=== PATIENT | male | born 1990 | race Caucasian/White ===

== ENCOUNTER 2020-04-21 08:25 | Outpatient (CLI) | payer BC, SELFPAY ==
--- NOTE | ~2020-04-21 | CT_ITS ---
EXAMINATION: CT abdomen pelvis w con DATE: 04/21/2020 09:11 INDICATION: Low abdominal pain. TECHNIQUE: Computed tomography (CT) of the abdomen and pelvis was performed with 100 mL Omnipaque 350 intravenous contrast. Automated exposure control and iterative reconstruction technique were employe d. The dose-length product was 649.47 mGy-cm. COMPARISON: None. FINDINGS: The visualized portions of the lung bases are clear without pneumonia or pleural effusion. The heart size is normal. No pericardial effusion. The liver, gallbladder, spleen, pancreas, adrenal glands, and kidneys are normal. The appendix measures 8 mm in diameter. There are no pathologically e nlarged lymph nodes. There is no free intraperitoneal fluid. There is mild lumbar spondylosis. IMPRESSION: 1. Appendiceal diameter of 8 mm, which is indeterminate for appendicitis. Correlate with physical exa m. Reviewed, dictated and finalized at location A. RV[employer]OR [employer] FURN[employer]URE FABRICATION IMPRESSION: 1. Appendiceal diameter of 8 mm, which is indeterminate for appendicitis. Corre late with physical exam.
[2020-04-21 09:06] LABS: Estimated Glomerular Filt Rate > 60
== END 2020-04-21 08:26 | disposition home or self-care (01) ==
PROVIDERS: PCP Physician Assistant; Visit Provider Physician Assistant
DX: R10.84 Generalized abdominal pain (principal)
CPT/HCPCS: 74177; Q9967

== ENCOUNTER 2020-04-25 07:35 | Outpatient (CLI) | payer BC, SELFPAY ==
--- NOTE | ~2020-04-25 | NM_ITS ---
EXAM: NM gastric emptying study DATE: 04/25/2020 12:14 INDICATION: Abdominal pain. Early satiety. Bloating. TECHNIQUE: A gastric emptying study was performed using the methodology of Loida CAGE, et al. J Nucl Med 2007; 48:568-572. The patient was given a meal consisting of 2 scrambled eggs labeled with 1.05 mCi Tc-99m sulfur colloid, 2 slices of toast, two packages of jam, and approximately 120 mL of water. Simultaneous anterior and posterior 1-min images of the abdomen were obtained with the patient supin e at multiple time points over a total period of 4 hours. The geometric mean of anterior and posterio r views was determined, and the percentage retention was calculated for each time point. COMPARISON: CT abdomen and pelvis 04/21/20 FINDINGS: Gastric retention of the radiotracer-labeled meal was 73%, 46%, and 15% at the 1-hour, 2-h our, and 4-hour time points, respectively. With this technique, apparent rapid gastric emptying is uriarte ggested by <30% gastric retention at 1 hour. Delayed gastric emptying is defined by gastric retention of >90% at 1 hour, >60% retention at 2 hours, or >10% retention at 4 hours. IMPRESSION: 1. Delayed gastric emptying. Reviewed, dictated and finalized at location A. MECHANIST
[2020-04-25 12:22] LABS: Basophils Absolute Auto 0.06 K/mm3 (0.00-0.10); Eosinophils Absolute Auto 0.08 K/mm3 (0.02-0.50); Eosinophils Percent Auto 1.3 % (1.0-6.0); Hematocrit 42.6 % (40.0-54.0); Hemoglobin 14.7 g/dL (14.0-18.0); Immature Granulocyte Absolute 0.01 K/mm3 (0.00-0.00); Immature Granulocyte Percent A 0.2 % (0.0-0.0); Lymphocytes Absolute Auto 2.24 K/mm3 (1.10-4.50); Lymphocytes Percent Auto 37.5 % (18.0-42.0); Mean Corpuscular HGB Conc 34.5 g/dL (32.0-36.0); Mean Corpuscular Hemoglobin 29.3 pg (27.0-31.0); Mean Platelet Volume 9.4 fl (8.7-11.0); Monocytes Absolute Auto 0.38 K/mm3 (0.10-0.90); Monocytes Percent Auto 6.4 % (2.0-11.0); Neutrophils Absolute Auto 3.2 K/mm3 (1.7-7.2); Neutrophils Percent Auto 53.6 % (50.0-70.0); Platelet Count Result 254 K/mm3 (150-420); Red Blood Count 5.01 M/mm3 (4.70-6.10); Red Cell Distribution Width 12.2 % (11.6-14.4)
[2020-04-25 12:56] LABS: Alanine Aminotransferase 18 U/L (16-63); Albumin Level 4.4 g/dL (3.4-5.0); Alkaline Phosphatase 61 U/L (46-116); Amylase 33 U/L (25-115); Anion Gap 8 mmol/L (8-16); Aspartate Amino Transferase 10 U/L (15-37); Bilirubin,Total 0.6 mg/dL (0.00-1.00); Blood Urea Nitrogen 13 mg/dL (7-18); Calcium 8.9 mg/dL (8.5-10.1); Carbon Dioxide 27 mmol/L (21-32); Chloride 102 mmol/L (98-108); Estimated Glomerular Filt Rate > 60; Glucose 203 mg/dL (70-99); Lipase 56 U/L (73-393); Osmolality Calculated 290 mOsm/kg (285-295); Potassium 4.4 mmol/L (3.5-5.1); Sodium 137 mmol/L (136-145); Total Protein 7.2 g/dL (6.4-8.2)
== END 2020-04-25 07:36 | disposition home or self-care (01) ==
PROVIDERS: PCP Physician Assistant; Visit Provider Physician Assistant
DX: R10.84 Generalized abdominal pain (principal); R68.81 Early satiety
CPT/HCPCS: 36415; 78264; 80053; 82150; 83690; 85025; A9541

== ENCOUNTER 2020-04-28 20:23 | Emergency (ER) | payer BC, SELFPAY ==
--- NOTE | ~2020-04-28 | CT_ITS ---
EXAMINATION: CT abdomen pelvis w con DATE: 04/28/2020 21:43 INDICATION: Generalized abdominal pain TECHNIQUE: Computed tomography (CT) of the abdomen and pelvis was performed with 100 cc Omnipaque 350 intravenous contrast. The dose-length product was 788.45 mGy-cm. Automated exposure control and iter ative reconstruction technique were employed. COMPARISON: CT dated 04/21/2020 FINDINGS: Lung bases are unremarkable. Heart size normal. No pleural or pericardial effusion. No sign ificant vascular abnormality. No lymphadenopathy. The liver, spleen, pancreas, adrenal glands and kidneys are unremarkable. Gallbladder is present. Eusebio endix is normal caliber measuring 6 mm. No significant periappendiceal infiltration. No free air or f ree fluid. Enlarged prostate gland. Mild lumbar spondylosis. IMPRESSION: 1. No acute abdominal abnormality. Reviewed, dictated and finalized at location A. GENERATOR OPERATOR
[2020-04-28 20:35] VITALS: BP 144/82; PULSE 120; RESP 17; TEMP 36.4; O2SAT 99
[2020-04-28 20:58] LABS: Basophils Percent Auto 0.3 % (0.2-1.2); Eosinophils Absolute Auto 0.1 K/mm3 (0-0.3); Hemoglobin 16.8 g/dL (14.0-18.0); Immature Granulocyte Absolute 0.04 K/mm3 (0.00-0.031); Immature Granulocyte Percent A 0.3 % (0-0.5); Lymphocytes Absolute Auto 1.59 K/mm3 (0.9-3.2); Lymphocytes Percent Auto 12.5 % (18.3-44.2); Mean Corpuscular HGB Conc 35.7 g/dl (32-36); Mean Corpuscular Hemoglobin 30.1 pg (26-34); Mean Corpuscular Volume 84.1 fl (80-100); Mean Platelet Volume 9.4 fl (7.4-10.4); Monocytes Absolute Auto 0.6 K/mm3 (0.1-0.6); Neutrophils Absolute Auto 10.2 K/mm3 (1.3-6.7); Neutrophils Percent Auto 80.9 % (45.5-73.1); Platelet Count Result 295 k/mm3 (150-375); Red Blood Count 5.59 M/mm3 (4.6-6.20); Red Cell Distribution Width 12.4 % (11.5-14.5); White Blood Count 12.7 K/mm3 (4.5-10.0)
[2020-04-28 21:12] LABS: Alanine Aminotransferase 16 U/L (4-50); Albumin Level 5.1 g/dL (3.5-5.1); Alkaline Phosphatase 62 U/L (38-126); Anion Gap 11 mmol/L (8-16); Aspartate Amino Transferase 23 U/L (17-59); Bilirubin,Total 0.7 mg/dL (0.2-1.3); Blood Urea Nitrogen 19 mg/dL (9-20); Calcium 9.8 mg/dL (8.4-10.2); Carbon Dioxide 27 mmol/L (22-30); Chloride 103 mmol/L (98-107); Estimated CRCL calculation 117 ml/min; Estimated Glomerular Filt Rate > 60; Glucose 152 mg/dL (75-110); Lipase 52 U/L (23-300); Sodium 141 mmol/L (137-145)
--- NOTE | 2020-04-28 21:21 | ED.ABDPAIN ---
HPI - Abdominal Pain General Chief Complaint: Abdominal Pain Stated Complaint: abd pain Time Seen by Provider: 04/28/20 20:53 Source: patient Mode of arrival: ambulatory Limitations: no limitations History of Present Illness HPI narrative: This is a 29-year-old male that presents to the emergency department for abdominal discomfort x3 weeks. Reports he feels full easily. Reports abdominal bloating. Reports he has been seeing his primary doctor for this. He had a gastric emptying study that did show some delayed gastric emptying. He also had a CT scan of his abdomen and pelvis recently which showed a enlarged appendix. Reports nausea and vomiting. Also reports a low-grade fever today. Denies diarrhea, or dysuria. Related Data Home Medications Medication Instructions Recorded Confirmed famotidine 20 mg PO DAILY 04/28/20 04/28/20 insulin aspart U-100 [Novolog 04/28/20 U-100 Insulin aspart] lisinopril 04/28/20 Allergies Allergy/AdvReac Type Severity Reaction Status Date / Time Penicillins Allergy Unknown Hives Verified 04/28/20 20:24 Review of Systems Review of Systems: Narrative: CONSTITUTIONAL: Reports fever GASTROINTESTINAL: Reports abdominal pain, nausea, vomiting. Denies diarrhea. GENITOURINARY: Denies dysuria All systems reviewed & are unremarkable except as noted in HPI and below PMFSH Past Medical History Medical History (Updated 04/28/20 @ 22:34 by Layne Fulton PA-C) History of diabetes mellitus Social History Social History (Updated 04/28/20 @ 21:24 by Layne Fulton PA-C) Substance use: current Substance use type: marijuana Gender identity (if verbalized by the patient): Male Exam Narrative: Exam Narrative: GENERAL: Well-appearing, well-nourished, and in no acute distress. HEAD: Normocephalic, atraumatic. EYES: EOMI. CHEST: Clear to auscultation. No respiratory distress. No wheezes rales or rhonchi HEART: Regular rate and rhythm. No murmur heard. Normal peripheral pulses. ABDOMEN: Soft, nondistended, normal active bowel sounds. Tender to palpation throughout the lower abdomen, without guarding. No CVA tenderness EXTREMITIES: Normal range of motion. No edema. SKIN: Warm, dry, no rash. NEURO: No focal deficits. Alert and oriented x3. PSYCH: Normal mood and affect Course Vital Signs Vital signs: Vital Signs Temperature 97.6 F 04/28/20 20:35 Pulse Rate 120 H 04/28/20 20:35 Respiratory Rate 17 04/28/20 20:35 Blood Pressure 144/82 H 04/28/20 20:35 Pulse Oximetry 99 04/28/20 20:35 Temperature 97.6 F 04/28/20 20:35 Pulse Rate 120 H 04/28/20 20:35 Respiratory Rate 17 04/28/20 20:35 Blood Pressure 144/82 H 04/28/20 20:35 Pulse Oximetry 99 04/28/20 20:35 MDM - Abdominal Pain MDM Narrative Medical decision making narrative: Patient presents the emergency department for abdominal discomfort and bloating. Patient is a diabetic. Did recently have a gastric emptying study done that showed delayed gastric emptying. Patient is afebrile and nontoxic-appearing. CBC with mild leukocytosis to 12.7. Metabolic panel without concerning findings. Lipase is normal. No episodes of emesis in the ED. He reports improvement with Tylenol and Reglan. Patient is stable and felt appropriate for further outpatient evaluation. He was given warnings to return to the ER Lab Data Attestation: I reviewed the patient's lab results. Result diagrams: 04/28/20 20:48 04/28/20 20:48 Labs: Lab Results 04/28/20 04/28/20 Range/Units 20:48 20:48 WBC 12.7 H (4.5-10.0) K/mm3 RBC 5.59 (4.6-6.20) M/mm3 Hgb 16.8 (14.0-18.0) g/dL Hct 47.0 (42.0-52.0) % MCV 84.1 (80-100) fl MCH 30.1 (26-34) pg MCHC 35.7 (32-36) g/dl RDW 12.4 (11.5-14.5) % Plt Count 295 (150-375) k/mm3 MPV 9.4 (7.4-10.4) fl Immature Gran % (Auto) 0.3 (0-0.5) % Neut % (Auto) 80.9 H (45.5-73.1) % Lymph % (Auto) 12.5 L (
[2020-04-28] MEDS: METOCLOPRAMIDE HCL INJ 10 MG/2 ML VIAL IV PUSH (21:30)
[2020-04-28] MEDS: SODIUM CHLORIDE 0.9% IV 1,000 ML 999 ML IV CONT (21:30)
[2020-04-28 22:44] VITALS: BP 128/84; PULSE 88; RESP 16; TEMP 36.7; O2SAT 99
== END 2020-04-28 22:45 | disposition home or self-care (01) ==
PROVIDERS: Emergency Medicine; Emergency Provider Emergency Medicine; PCP Physician Assistant
DX: R14.0 Abdominal distension (gaseous) (principal); E11.9 Type 2 diabetes mellitus without complications; Z79.4 Long term (current) use of insulin
CPT/HCPCS: 36415; 74177; 80053; 83690; 85025; 96361; 96374; 96375; 99284; J0131; J2765; J7030; Q9967

== ENCOUNTER → 2020-11-21 08:09 | Outpatient (CLI) | payer BC, SELFPAY ==
--- NOTE | ~2020-11-21 | US_ITS ---
US right upper quadrant DATE: 11/21/2020 08:32 INDICATION: Epigastric abdominal pain, nausea and vomiting TECHNIQUE: Real-time imaging of liver, pancreas, gallbladder COMPARISON: 04/28/2020 CT abdomen pelvis FINDINGS: No hepatic or pancreatic space-occupying mass lesion is evident. Normal hepatopedal portal venous flow direction. No gallstones, gallbladder wall thickening or abnormal pericholecystic fluid collection. The common b ile duct measures 4 mm, normal. Normal caliber of the abdominal aorta. IMPRESSION: No significant abnormality Reviewed, dictated and finalized at Location A. Reviewed, dictated and finalized at location A. IMPRESSION: No significant abnormality
== END ==
PROVIDERS: PCP Physician Assistant
DX: R10.13 Epigastric pain (principal); G89.29 Other chronic pain; R11.2 Nausea with vomiting, unspecified
CPT/HCPCS: 76705

== ENCOUNTER 2022-01-06 22:53 | Emergency (ER) | payer OTHER, SELFPAY ==
--- NOTE | ~2022-01-06 | XR_ITS ---
EXAMINATION: XR chest 2V DATE: 01/06/2022 23:42 INDICATION: Chest pain TECHNIQUE: PA and lateral views of the chest were obtained. COMPARISON: None FINDINGS: The lungs are clear with no focal airspace opacities, pulmonary edema, pleural effusion or pneumothor ax. The cardiomediastinal silhouette is normal. Mild thoracic dextroscoliosis. IMPRESSION: 1. No acute cardiopulmonary disease. Reviewed, dictated and finalized at location A. NG IRONER
[2022-01-06 22:58] VITALS: BP 138/94; PULSE 92; RESP 17; TEMP 37.6; O2SAT 99
--- NOTE | 2022-01-06 22:58 | ECG_ITS ---
Measurements Intervals [place] Rate: 97 P: 54 UT: 129 QRS: 18 QRSD: 101 T: 48 QT: 378 QTc: 480 Interpretive Statements SINUS RHYTHM NONSPECIFIC T-WAVE ABNORMALITY- DIFFUSE LEADS BASELINE ARTIFACT- I, II, III, AVR, AVL, AVF, V1-V6 BORDERLINE ECG NO PREVIOUS ECG AVAILABLE FOR COMPARISON Electronically Signed On 01-07-2022 7:00:58 STAND UP COMEDIAN by Arcadio Stevens D.O.
--- NOTE | 2022-01-06 23:08 | ED.GENADULT ---
HPI - General Adult General Chief complaint: Chest Pain Stated complaint: chest pain radiates to shoulder blades Time Seen by Provider: 01/06/22 23:02 History of Present Illness HPI narrative: Patient 31-year-old gentleman who presents emerged part with chief complaint of chest pain patient states that he has had discomfort and pressure in his chest has been intermittent for the last several days. The patient reports he has history of type 1 diabetes reports that the pain does not radiate reports that he has had no shortness of breath reports that he ate a burrito today. Patient with no prior history of cardiac disorders reports no hypertension. Related Data Home Medications Medication Instructions Recorded Confirmed insulin aspart U-100 100 unit/mL 04/28/20 05/09/20 subcutaneous solution (Novolog U-100 Insulin aspart) lisinopril 10 mg tablet 04/28/20 05/09/20 Allergies Allergy/AdvReac Type Severity Reaction Status Date / Time Penicillins Allergy Unknown Hives Verified 01/06/22 23:03 Review of Systems Review of Systems: A 10 system review of systems was completed on the patient and is negative except for what is stated in the HPI. Nursing and ancillary documentation was reviewed. [facility] Past Medical History Medical History History of diabetes mellitus Hypertension Surgical History Surgical History H/O chest tube placement Family History Family History Mother Hypertension Sibling Diabetes mellitus Social History Social History Smoking status: Never smoker Substance use: current Substance use type: marijuana Gender identity (if verbalized by the patient): Male Exam Narrative: GENERAL: Well-appearing, well-nourished, and in no acute distress. HEAD: Normocephalic, atraumatic. EYES: PERRLA and EOMI. ENT: Nares clear, no rhinorrhea or epistaxis. Mucous membranes moist. NECK: Supple. CHEST: Clear to auscultation. No respiratory distress. HEART: Regular rate and rhythm. No murmur heard. Normal peripheral pulses. ABDOMEN: Soft, nontender, nondistended, normal active bowel sounds. EXTREMITIES: Normal range of motion. No edema. SKIN: Warm, dry, no rash. NEURO: No focal deficits. Alert and oriented x3. PSYCH: Normal mood and affect. Course Course Emergency Course: EKG is sinus rhythm rate of [address] elevation or ST depression Vital Signs Vital signs: Vital Signs Temperature 37.6 C 01/06/22 22:58 Pulse Rate 92 01/06/22 22:58 Respiratory Rate 17 01/06/22 22:58 Blood Pressure 138/94 H 01/06/22 22:58 Pulse Oximetry 99 01/06/22 22:58 Oxygen Delivery Room Air 01/06/22 22:58 Temperature 37.6 C 01/06/22 22:58 Pulse Rate 92 01/06/22 22:58 Respiratory Rate 17 01/06/22 22:58 Blood Pressure 138/94 H 01/06/22 22:58 Pulse Oximetry 99 01/06/22 22:58 Oxygen Delivery Room Air 01/06/22 22:58 Medical Decision Making Vital Signs Vital Signs: Vital Signs Temperature 37.6 C 01/06/22 22:58 Pulse Rate 92 01/06/22 22:58 Respiratory Rate 17 01/06/22 22:58 Blood Pressure 138/94 H 01/06/22 22:58 Pulse Oximetry 99 01/06/22 22:58 Oxygen Delivery Room Air 01/06/22 22:58 Temperature 37.6 C 01/06/22 22:58 Pulse Rate 92 01/06/22 22:58 Respiratory Rate 17 01/06/22 22:58 Blood Pressure 138/94 H 01/06/22 22:58 Pulse Oximetry 99 01/06/22 22:58 Oxygen Delivery Room Air 01/06/22 22:58 Lab Data Result diagrams: 01/06/22 23:07 01/06/22 23:07 Labs: Lab Results 01/06/22 01/06/22 01/06/22 Range/Units 23:07 23:07 23:07 WBC 9.6 (4.5-10.0) K/mm3 RBC 4.93 (4.6-6.20) M/mm3 Hgb 14.6 (14.0-18.0) g/dL Hct 42.2 (42.0-52.0) %
[2022-01-06 23:12] LABS: Basophils Absolute Auto 0.1 K/mm3 (0.0-0.1); Basophils Percent Auto 0.8 % (0.2-1.2); Eosinophils Absolute Auto 0.1 K/mm3 (0-0.3); Eosinophils Percent Auto 1.4 % (0-4.4); Hematocrit 42.2 % (42.0-52.0); Hemoglobin 14.6 g/dL (14.0-18.0); Immature Granulocyte Absolute 0.03 K/mm3 (0.00-0.031); Immature Granulocyte Percent A 0.3 % (0-0.5); Lymphocytes Absolute Auto 3.43 K/mm3 (0.9-3.2); Lymphocytes Percent Auto 35.7 % (18.3-44.2); Mean Corpuscular HGB Conc 34.6 g/dl (32-36); Mean Corpuscular Hemoglobin 29.6 pg (26-34); Mean Corpuscular Volume 85.6 fl (80-100); Mean Platelet Volume 8.8 fl (7.4-10.4); Monocytes Absolute Auto 0.6 K/mm3 (0.1-0.6); Monocytes Percent Auto 6.1 % (2.6-8.5); Neutrophils Absolute Auto 5.4 K/mm3 (1.3-6.7); Neutrophils Percent Auto 55.7 % (45.5-73.1); Platelet Count Result 311 k/mm3 (150-375); Red Blood Count 4.93 M/mm3 (4.6-6.20); Red Cell Distribution Width 12.4 % (11.5-14.5); White Blood Count 9.6 K/mm3 (4.5-10.0)
[2022-01-06 23:22] LABS: Alanine Aminotransferase 17 U/L (6-50); Albumin Level 4.6 g/dL (3.5-5.1); Alkaline Phosphatase 49 U/L (38-126); Anion Gap 9 mmol/L (8-16); Aspartate Amino Transferase 19 U/L (17-59); Bilirubin,Total 0.4 mg/dL (0.2-1.3); Blood Urea Nitrogen 18 mg/dL (9-20); Calcium 9.2 mg/dL (8.4-10.2); Carbon Dioxide 26 mmol/L (22-30); Chloride 104 mmol/L (98-107); Estimated Glomerular Filt Rate > 60; Glucose 148 mg/dL (65-110); INR 1.1; Lipase 57 U/L (23-300); Potassium 3.7 mmol/L (3.4-5.0); Prothrombin Time 13.9 Seconds (11.1-14.7); Sodium 139 mmol/L (137-145)
[2022-01-06] MEDS: ASPIRIN 81 MG CHEWABLE TABLET 324 MG PO (23:23)
[2022-01-06] MEDS: BELLADONNA ALK/PHENOB ELIX 10 ML, MAG HYDROX/ALUMINUM HYD/SIMETH 30 ML, LIDOCAINE HCL 2... PO (23:24)
[2022-01-06 23:33] LABS: Troponin I < 0.012 ng/mL (0.000-0.034)
[2022-01-07 00:43] VITALS: BP 138/85; PULSE 81; RESP 20; O2SAT 98
[2022-01-07 00:44] VITALS: BP 138/85; PULSE 80; RESP 18; O2SAT 99
== END 2022-01-07 00:40 | disposition home or self-care (01) ==
PROVIDERS: Emergency Provider Emergency Medicine; PCP Physician Assistant
DX: R07.89 Other chest pain (principal); E10.9 Type 1 diabetes mellitus without complications; I10 Essential (primary) hypertension; Z79.4 Long term (current) use of insulin; R94.31 Abnormal electrocardiogram [ECG] [EKG]
CPT/HCPCS: 36415; 71046; 80053; 83690; 84484; 85025; 85610; 85730; 93005; 99284; A9270

== ENCOUNTER 2024-12-04 22:45 | Emergency (ER) | payer SELFPAY ==
[2024-12-04 22:49] VITALS: BP 144/81; PULSE 107; RESP 18; TEMP 36.8; O2SAT 99
--- OUTSIDE RECORDS SUMMARY | 2024-12-05 00:44 | XMS_ITS | Data Portability ---
Author Organization ALICIA LÓPEZDavid Rowe Address [address] [facility] [place] [address] Care Team Providers Care Ophthalmic Aide Name Role Phone CHARO CARRINGTON Primary Care Provider Unavailab le Assessment No assessment recorded. Plan of Treatment Reminders Order Date Submit Date Provider Last Modified By Organization Details Last Modified Time Details Appointments ANY 15 2025 09:00A M JENNIFER Bunch Not available Not available Not available Lab TSH + free T4, serum 2023 024 [email or web address] [facility], [address], [place], [address], 05/16/2023 16:35:25 CMP, serum or plasma 2023 024 [email or web address] [facility], [address], [place], [address], 05/16/2023 16:35:25 CBC w/ auto diff 2023 024 [email or web address] [facility], [address], [place], [address], 05/16/2023 16:35:25 lipid panel, serum 2023 024 [email or web address] [facility], [address], [place], [address], 05/16/2023 16:35:25 vitamin B12 + folate, serum or blood 2023 024 [email or web address] [facility], [address], [place], [address], 05/16/2023 16:35:26 vitamin D, 25-hydrox y, total, serum 2023 024 [facility], [address], [place], [address], 05/16/2023 16:35:26 testoster one, free + total, serum 2023 024 DALY [facility], [address], [place], [address], 05/13/2023 11:44:25 Referral dermatolo gist referral 2024 025 [facility]), [address], [place], [address], 10/13/2024 11:29:44 Procedures None recorded. Surgeries None recorded. Imaging exercise stress test 2023 024 [facility], [address], [address], [place], [address], 06/07/2023 16:41:53 Medication Orders Zithromax Z-Zacarias 250 mg tablet 2023 024 [email or web address] [id number], [address], [place], [id number], 06/08/2023 15:32:58 Patient TargetsNo targets recorded. Patient Instructions Encounter Date Encounter Id Patient Instructions Last Modified By Organization Details Last Modified Time 10/13/2024 [id number] A healthy lifestyle: care instructions [email or web address] Not available 10/13/2024 10:31:00 Reason for Referral Optical Lab Technician Referral for L esion of nose Referring Physician: Charo Carrington, Internal Medicine, Encounter Date: 10/13/2024 Results Created Date Observation Date Name Description Value Unit Range Abnormal Flag Note LastModifiedBy Organization Detail LastModifiedTime 10/07/19 25 10/06/2024 Hemog lobin A1c/H emogl obin. total in Blood hemoglobin A1C, POC 6.6 % low: 4%high : 5.6% abnormal Not Available Not Available 10/13/2024 10:07:16 10/07/19 25 10/06/2024 Hemog lobin A1c/H emogl obin. total in Blood interpretati on and review of laboratory results Abnorm al Not Available Not Available 10:07:16 06/07/19 24 06/07/2023 exerc ise stres s test No observ ation record ed. [email or web address] [facility] [address], [place], [address], 06/10/2023 10:17:39 06/10/19 24 06/07/2023 exerc ise stres s test No observ ation record ed. [email or web address] [facility] [address], [place], [address], 06/10/2023 14:18:40 Result Notes None recorded. Problems Name Problem SNOMED Code Status Onset Date Resolution Date Notes Provider Name and Address Organization Details Recorded Time Type 1 diabetes mellitus 76984301 Active 024 Alee Angel null, [place] - [facility] 4 11:06:39 Overweight in adulthood with body mass index of 25 or more but less than 30 163392694 Active 025 JENNIFER Bunch Attn: Olesya willingham,[address] [facility], [place], [address] [facility] [place] - [facility] 5 23:20:31 Problem Notes None recorded. Medical Equipment None Reported. Allergies Allergen ID Allergen Name Allergen Category Reaction Reaction Severity Criticality Documentation Date Start Date Code Code System Note Provider Name and Address Organization Details Recorded Time 625217 Product containin g penicilli n (product) medicatio n Not available Not available Not available 04/22/2023 32486 8001 SNOMED Trisha Ross MA null, [place] - [facility] 4 09:25:37 Medications Name Sig Start Date Stop Date Status Note LastModified by Organization Details LastModified Time azithromyci n 250 mg tablet TAKE 2 TABLETS (500 MG) BY ORAL ROUTE ONCE DAILY FOR 1 DAY THEN 1 TABLET (250 MG) BY ORAL ROUTE ONCE DAILY FOR 4 DAYS 06/07 completed Not Available Not Available Not Available insulin lispro (U-100) 100 unit/mL subcutaneou s solution INJECT 90 UNITS UNDER THE SKIN DAILY VIA INSULIN PUMP active Not Available Not Available No t Available Humalog KwikPen U-200 Insulin 200 unit/mL (3 mL) subcutaneou s Inject by subcutane ous route. active Not Available Not Available No t Available insulin pump cart,auto,B T-cntr active Not Available Not Available Not Available Dexcom G7 Sensor device 1 DEVICE EVERY 10 DAYS active Not Available Not Available No t Available Dexcom G7 Sensor active Not Available Not Available Not Available Vitals Date Recorded Systolic And Diastolic Provider Name and Address Organization Details Last Updated DateTime 04/22/2023 124/82 mm[Hg] JENNIFER Bunch Attn: Accounting,[address] [place], [address], [facility] 04/22/2023 09:50:43 Date Recorded Body weight Body mass index (BMI) Body height Heart rate Oxygen saturation Oxygen saturation in Arterial blood by Pulse oximetry Systolic And Diastolic Provider Name and Address Organization Details Last Updated DateTime 4 09734.9 2 g 26.3 kg/m2 182.88 cm 80 /min 99 % 99 % 124/84 mm[Hg] Trisha Ross MA [facility] 4 09:25:17 Date Recorded Respiratory rate Provider Name a nd Address Organization Details Last Updated DateTime 10/13/2024 16 /min JENNIFER Bunch Attn: Accounting,[address] [place], [address], [facility] 10/13/2024 10:21:35 Date Recorded Body height Body mass index (BMI) Body weight Oxygen saturation Oxygen saturation in Arterial blood by Pulse oximetry Heart rate Systolic And Diastolic Provider Name and Address Organization Details Last Updated DateTime 5 182.88 cm 26.6 kg/m2 31037.1 g 98 % 98 % 69 /min 126/82 mm[Hg] Laquita Amaya [place] [facility] 09:59:39 Social History Question Answer Notes LastModified by Organizat ion Details LastModified Time Tobacco Smoking Status Current Some Day Smoker Laquita Amaya MA null, [place] - [facility] 10/13/2024 09:56:55 Do You Have An Advance Directive? No Information not available 10/13/2024 Are You Blind Or Do You Have Difficulty Seeing? Yes Glasses Information not available 10/13/2024 What Is Your Level Of Caffeine Consumption? Occasional Coffee Information not available 10/13/2024 In The 14 Days Before Symptom Onset, Have You Had Close Contact With A Laboratory-confir med COVID-19 While That Case Was Ill? No Information not available 10/13/2024 In The 14 Days Before Symptom Onset, Have You Had Close Contact With A Person Who Is Under Investigation For COVID-19 While That Person Was Ill? No Information not available 10/13/2024 Have You Been To An Area Known To Be High Risk For COVID-19? No Information not available 10/13/2024 Are You Deaf Or Do You Have Serious Difficulty Hearing? No Information not available 10/13/2024 What Type Of Diet Are You Following? REGULAR Information not available 10/13/2024 What Was The Date Of Your Most Recent Tobacco Screening? 10/13/2024 Information not available 10/13/2024 What Is Your Current Pack Years? 10-19packyears Information not available 10/13/2024 What Is Your Relationship Status? Information not available 10/13/2024 Do You Use Your Seat Belt Or Car Seat Routinely? Yes Information not available 10/13/2024 Do You Have Smoke And Carbon Monoxide Detectors In Your Home? Yes Information not available 10/13/2024 How Much Tobacco Do You Smoke? No Information not available 10/13/2024 Do You Use Sunscreen Routinely? Yes Information not available 10/13/2024 Has Tobacco Cessation Counseling Been Provided? No Information not available 04/22/2023 How Many Years Have You Smoked Tobacco? 17 Information not available 10/13/2024 Sex: Unknown Functional Status Question Answer Note LastModified by Organizat ion Details LastModified Time Do you use any illicit or recreational drugs? Yes MARIJUNA Information not available 10/13/2024 Do you or have you ever used any other forms of tobacco or nicotine? No Information not available 04/22/2023 What is your level of alcohol consumption? Occasional rare Information not available 10/13/2024 Are you currently employed? Yes Information not available 10/13/2024 Are you able to care for yourself independently? Yes Information not available 10/13/2024 Mental Status None recorded. Family History Relationship Description Onset Age of this Age Resolved Age Notes LastModified by Organization Details LastModified Time Mother Hypertensive disorder [email or web address] Not available 2023 09:27:03 Medical History Condition Response Diabetes Y Immunizations Vaccine Type Date Status Note Provider Nam e and Address Organization Details Recorded Time OPV, trivalent 1 completed Not Available [facility] 10/13/2024 09:48:09 DTP 1 completed Not Available [facility] 10/13/2024 09:48:09 Hib, unspecified formulation 1 completed Not Available [facility] 10/13/2024 09:48:09 Hib, unspecified formulation 2 completed Not Available [facility] 10/13/2024 09:48:09 DTP 2 completed Not Available [facility] 10/13/2024 09:48:09 OPV, trivalent 2 completed Not Available [facility] 10/13/2024 09:48:09 Hib, unspecified formulation 2 completed Not Available [facility] 10/13/2024 09:48:09 DTP 2 completed Not Available [facility] 10/13/2024 09:48:09 Hib, unspecified formulation 3 completed Not Available [facility] 10/13/2024 09:48:09 MMR 3 completed Not Available [facility] 10/13/2024 09:48:09 DTP 3 completed Not Available [facility] 10/13/2024 09:48:09 OPV, trivalent 3 completed Not Available [facility] 10/13/2024 09:48:09 Tdap 1 completed Not Available [facility] 10/13/2024 09:48:09 COVID-19, mRNA, LNP-S, PF, 30 mcg/0.3 mL dose 1 completed Not Available [facility] 10/13/2024 09:48:09 COVID-19, mRNA, LNP-S, PF, 30 mcg/0.3 mL dose 1 completed Not Available [facility] 10/13/2024 09:48:09 Past Encounters Encounter ID Performer Location Encounter Start Date Encounter Closed Date Diagnosis/Indication Diagnosis SNOMED-CT Code Diagnosis ICD10 Code Diagnosis IMO Codes Diagnosis Note [id number] Rayshawn Lafleur MD [facility] [address] [place] [address] 04/22/2023 09:16:23 04/22/2023 10:25:23 Adult health examination 577070211 Z00.01 annual wellness/p t re-establi shing. Well contr olled type 1 diabetes mellitus 070012007 E10.9 pt is due for diabetic eye exam . [facility]. Insulin pump present 450 338445 Z96.41 great management of diabetes. Long-term drug therapy 421486251 Z79.899 routine cbc and cmp due Thyroid di sorder screening 133210766 Z13.29 screening thyroid labs ordered. Cholesterol screening 27 2500418 Z13.220 fasting lipids due Fatigue 09328950 R53.83 screening vitamins and testostero ne labs ordered. Dyspnea on exertion 6084 5006 R06.09 refer for exercise stress testing evaluation with underlying diabetes and dyspnea newer onset, with exertion Acute sinusitis 28606561 J01.90 Rx for zpack therapy for persistent sinus issues. [id number] Rayshawn Lafleur MD [facility] [place] [address] [place] [address] 10/13/2024 09:45:51 10/13/2024 11:27:30 Overweight in adulthood with body mass index of 25 or more but less than 30 523658191 E66.3 Z68.26 2640269465 Adult heal th examination 470929334 Z00.00 3179717 annual wellness completed Lesion of nose 292952157 J34.89 140795 Refer to dermatolog y for general skin check on face and nasal macular discolorat ion Type 1 pili betes mellitus 36054041 E10.9 Stable following with endocrinol ogy A1c of 6.6%. Patient has a Dexcom as well as insulin pump with Humalog. Health Concerns Section Related Observation LastModified by Organization Detai ls LastModified Time None Recorded Concern Status LastModified by Organization Details LastModified Time None Recorded Advance Directives Directive N: Payers Insurance Date Sequence Insurance Name Policy Number Policy Peacock Covered Member ID Peacock Member ID Guarantor Name 10/14/2024 1 [facility] [id number] 1 Kojo Guaman [id number] Kojo Guaman 10/20/2024 1 [facility] [id number] Kojonguyen Guaman [id number] [place]en [place] Notes Date Note Type Note Provider Name and Address Organization Details Recorded Time 4 text/html DiabetesReported by Patient6.1% on last a1c. dr. ramon graff is endo that follows. Generic HPI TemplateReported by PatientPt here to establish . He would like annual labs. FatigueReported by PatientHPIFor context, patient reportssymptoms do not improve on weekends/vacations. For quality, patient reportscontinuous. For severity, patient reportsnormal sleep patternsandnormal activity. For duration, patient reportsconstantandsympto ms lasting over 2 weeks. For timing, patient reportsgradual. For modifying factors, patient reportsno new stressors in life. For associated symptoms, patient reportsno drug/alcohol withdrawal,no depression,no anxiety,no sleep disturbances,no snoring, andperiods of not breathing (apnea) have not been observed. DyspneaReported by PatientHPIFor quality, patient reportscan't catch breath. For context, patient reportswith activity. For aggravating factors, patient reportsactivity. For associated symptoms, patient reportsdecrease in exercise capacitybut reportsno chest pain,no palpitations,no fever,no chills, andno wheezing. For severity, patient reportsmoderate. For duration, patient reportsfor ___ months. For onset/timing, patient reportsweekly. For alleviating factors, patient reportsrelieved with rest. JENNIFER Bunch Attn: Accounting,[address] [facility], [place], [address], [facility] 05/04/2023 16:33:12 5 text/html DiabetesReported by Patient6.6% on last a1c. dr. ramon graff is endo that follows. JENNIFER Bunch Attn: Accounting,[address] [place], [address], [facility] 10/19/2024 23:22:10
--- OUTSIDE RECORDS SUMMARY | 2024-12-05 00:44 | XMS_ITS | Encounter Summary ---
Author Organization [facility] Address [address] [place] [address] Care Team Providers Care Linen Supervisor Name Role Phone Unavailable Primary Care Provider Unavailabl e Encounter Details Date Type Department Care Team (Late st Contact Info) Description 11/02/2020 Lab Requisition [facility] [address] [place] [address] Charo Moody PA [address] [place] [address] Social History Tobacco Use Types Packs/Day Years Used Date Smoking Tobacco: Never Assessed Sex and Gender Information Value Date Recorded Sex Assigned at Not on file Legal Sex Male 7:50 AM CDT Gender Identity Not on file Sexual Orientation Not on file documented as of this encounter Plan of Treatment Not on file documented as of this encounter Procedures Procedure Name Priority Date/Time Associated Diagnosis Comments CBC W AUTO DIFFERENTIAL STAT 11/02/2020 9:37 AM CDT COMPREHENSIVE METABOLIC PANEL STAT 11/02/2020 9:37 AM CDT LIPASE BLOOD STAT 11/02/2020 9:37 AM CDT AMYLASE BLOOD STAT 11/02/2020 9:37 AM CDT documented in this encounter Results * (ABNORMAL) CBC WITH DIFFERENTIAL (11/02/2020 9:37 AM CDT) [facility] Signature WBC 7.2 4.4 - 10.7 x10E9/L 11/02/2020 1:21 PM CDT [facility] WBC Corrected 11/02/2020 1:21 PM CDT [facility] RBC 5.35 3.80 - 5.40 x10E12/L 11/02/2020 1: PM CDT [facility] Hemoglobin 16.0 12.0 - 17.6 gm/dL 11/02/2020 1: PM CDT [facility] Hematocrit 46.3 35.2 - 51.7 % 11/02/2020 1: PM CDT [facility] MCV 86.5 80.7 - 98.3 fl 11/02/2020 1: PM CDT [facility] MCH 29.9 26.7 - 34.0 pg 11/02/2020 1: PM CDT [facility] MCHC 34.6 30.8 - 35.9 gm/dL 11/02/2020 1: PM CDT [facility] Platelet Count 272 153 - 416 x10E9/L 11/02/2020 1: PM CDT [facility] RDW-CV 11.9(L) 12.1 - 14.9 % 11/02/2020 1: PM CDT [facility] MPV 9.5 9.4 - 12.9 fl 11/02/2020 1: PM CDT [facility] Neutrophils % 67.3 44.0 - 73.0 % 11/02/2020 1: PM CDT [facility] Lymphocytes % 25.0 20.0 - 43.0 % 11/02/2020 1: PM CDT [facility] Monocytes % 5.7 5.0 - 13.0 % 11/02/2020 1: PM CDT [facility] Eosinophils % 0.6 0.0 - 6.0 % 11/02/2020 1: PM CDT [facility] Basophils % 1.0 0.0 - 2.0 % 11/02/2020 1: PM CDT [facility] Immature Granulocytes 0.4 0 - 1 % 11/02/2020 1: PM CDT [facility] Neutrophil Absolute 4.83 2.01 - 7.14 x10E9/L 11/02/2020 1: PM CDT [facility] Lymphocytes Absolute 1.79 1.07 - 3.94 x10E9/L 11/02/2020 1: PM CDT [facility] Monocytes Absolute 0.41 0.26 - 1.07 x10E9/L 11/02/2020 1:21 PM CDT [facility] Eosinophils Absolute 0.04 0 - 0.47 x10E9/L 11/02/2020 1:21 PM CDT [facility] Basophils Absolute 0.07 0 - 0.08 x10E9/L 11/02/2020 1:21 PM CDT [facility] Immature Granulocytes Absolute 0.03 0.00 - 0.06 x10E9/L 11/02/2020 1:21 PM CDT [facility] nRBC Auto 0 /100 WBC 11/02/2020 1:21 PM CDT [facility] Blood BLOOD SPECIMEN / Unknown Venipuncture / Unknown 11/02/2020 9:37 AM CDT 11/02/2020 1:08 PM CDT [facility]o [facility] - HEMATOLOGY ORDERABLES Final Result Performing Organization Address City/[facility]/ZIP Co de Phone Number [facility] [address] [place] [id number] * LIPASE BLOOD (11/02/2020 9:37 AM CDT) Pathologist [facility] [place] Lipase 8 8 - 78 U/L 11/02/2020 1:38 PM CDT [facility] Blood BLOOD SPECIMEN / Unknown Venipuncture / Unknown 11/02/2020 9:37 AM CDT 11/02/2020 1:08 PM CDT Charo [facility] - CHEMISTRY ORDERABLES Final Result [facility] [address] [place] [address] * (ABNORMAL) COMPREHENSIVE METABOLIC PANEL (11/02/2020 9:37 AM CDT) Pathologist [facility] [place] Glucose 87 70 - 105 mg/dL 11/02/2020 1:33 PM CDT [facility] Sodium 141 136 - 145 mmol/L 11/02/2020 1:33 PM CDT [facility] Potassium 4.3 3.5 - 5.1 mmol/L 11/02/2020 1:33 PM CDT [facility] Chloride 104 98 - 107 mmol/L 11/02/2020 1:33 PM CDT [facility] CO2 24 23 - 31 mmol/L 11/02/2020 1:33 PM CDT [facility] Calcium 9.4 8.4 - 10.4 mg/dL 11/02/2020 1:33 PM CDT [facility] Anion Gap 13 8 - 18 mmol/L 11/02/2020 1:33 PM CDT [facility] BUN 14 8.9 - 20.6 mg/dL 11/02/2020 1:33 PM CDT [facility] Creatinine 1.01 0.72 - 1.25 mg/dL 11/02/2020 1:33 PM T [facility] Alkaline Phosphatase 65 40 - 150 U/L 11/02/2020 1:33 PM CDT [facility] ALT 10 0 - 61 U/L 11/02/2020 1:33 PM CDT [facility] AST 16 5 - 34 U/L 11/02/2020 1:33 PM CDT [facility] Protein Total 7.5 6.4 - 8.3 gm/dL 11/02/2020 1:33 PM CDT [facility] Albumin 4.8 3.5 - 5.2 gm/dL 11/02/2020 1:33 PM CDT [facility] Bilirubin Total 1.3(H) 0.2 - 1.2 mg/dL 11/02/2020 1:33 PM CDT [facility] eGFR by MDRD >60 >60 mL/min/1.7 3m2 11/02/2020 1:33 PM CDT [facility] eGFR by MDRD >60 >60 mL/min/1.7 3m2 11/02/2020 1:33 PM CDT [facility] Blood BLOOD SPECIMEN / Unknown Venipuncture / Unknown 11/02/2020 9:37 AM CDT 11/02/2020 1:08 PM CDT us hCaro [facility] - CHEMISTRY ORDERABLES Final Result [facility] [address] [place] [address] * AMYLASE BLOOD (11/02/2020 9:37 AM CDT) Amylase 37 25 - 125 U/L 11/02/2020 1:33 PM CDT [facility] Blood BLOOD SPECIMEN / Unknown Venipuncture / Unknown 11/02/2020 9:37 AM CDT 11/02/2020 1:08 PM CDT us Charo [facility] - CHEMISTRY ORDERABLES Final Result [facility] [address] [place], [place] [id number] documented in this encounter Visit Diagnoses Not on filedocumented in this encounter
--- OUTSIDE RECORDS SUMMARY | 2024-12-05 00:44 | XMS_ITS | Encounter Summary ---
Author Organization [facility] [employer] [facility] Address [address] [place] [address] Phone Care Team Providers Care Charge Loader Name Role Phone Yaya Johnson DO Primary Care Provider Charo Kincaid Primary Care Pr ovider Encounter Details Date Type Department Care Team (Late st Contact Info) Description 04/25/2020 Orders Only [facility] Scanning, Provider Social History Tobacco Use Types Packs/Day Years Used Date Smoking Tobacco: Never Sex and Gender Information Value Date Recorded Sex Assigned at Not on file 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 Gender Identity Not on file Sexual Orientation Not on file documented as of this encounter Plan of Treatment Not on file documented as of this encounter Procedures Procedure Name Priority Date/Time Associated Diagnosis Comments SCAN - RADIOLOGY/IMAGING 04/25/2020 documented in this encounter Results * SCAN - RADIOLOGY/IMAGING (04/25/2020) Anatomical Region Laterality Modality Other us Provider Scanning Final Result documented in this encounter Visit Diagnoses Not on filedocumented in this encounter Additional Health Concerns Infection Onset Date Last Indicated Resolved Time COVID: Suspected 11/03/2020 11/03/2020 11/03/2020 3:32 PM CDT documented as of this encounter Care Teams Charge Loader Relationship Specialty Start Date End Date Yaya Johnson DO PCP - General 06/11/16 06/23/20 Charo Kincaid PA PCP - General Physician Tax Processor 06/24/20 documented as of this encounter
--- OUTSIDE RECORDS SUMMARY | 2024-12-05 00:44 | XMS_ITS | Clinical Summary ---
Author Organization [facility] Address [address] [place] [address] Care Team Providers Care Clinical Coder Name Role Phone Unavailable Primary Care Provider Unavailabl e Source Comments [facility],non-owned Affiliates and Associated Physician Practices is amultiple site organization consisting of ambulatory clinics and hospital sitesin [place], [place], [place] and [place]. This disclosure is being madepursuant to the Care Everywhere program and may not contain all information available regarding this patient. Last updated 17.[facility] [employer] Social History Tobacco Use Types Packs/Day Years Used Date Smoking Tobacco: Never Assessed Sex and Gender Information Value Date Recorded Sex Assigned at Not on file Legal Sex Male 7:50 AM CDT Gender Identity Not on file Sexual Orientation Not on file Plan of Treatment Health Maintenance Due Date Last Done Comments HIV SCREENING 2005 HEPATITIS C SCREENING 11/16/2008 DTAP/TDAP/TD VACCINES (1 - Tdap) 2009 HEPATITIS B VACCINE (1 of 3 - 19+ 3-dose series) 2009 HPV VACCINE (1 - 3-dose SCDM series) 2017 DEPRESSION SCREENING 02/19/2024 COVID-19 VACCINE (1 - 2023-2 5 season) 2024 INFLUENZA VACCINE (#1) 2024 ZOSTER VACCINE (1 of 2) 2040 HIB VACCINE Aged Out No longer eligi ble based on patient's age to complete this topic MENINGOCOCCAL (Group B) VACC INE SHARED DECISION-MAKING Aged Out No longer eligibl e based on patient's age to complete this topic MENINGOCOCCAL GROUPS A/C/Y/W VACCINE Aged Out No longer eligible b ased on patient's age to complete this topic PNEUMOCOCCAL VACCINE Aged Out No long er eligible based on patient's age to complete this topic
--- OUTSIDE RECORDS SUMMARY | 2024-12-05 00:44 | XMS_ITS | Encounter Summary ---
Author Organization [facility] Address [address] [place] [address] Phone Care Team Providers Care Chain Person Name Role Phone Yaya Johnson DO Primary Care Provider Charo Kincaid Primary Care Pr ovider Encounter Details Date Type Department Care Team (Late st Contact Info) Description 04/21/2020 Orders Only [facility] Scanning, Provider Social History Tobacco Use Types Packs/Day Years Used Date Smoking Tobacco: Never Sex and Gender Information Value Date Recorded Sex Assigned at Not on file 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 Gender Identity Not on file Sexual Orientation Not on file documented as of this encounter Plan of Treatment Not on file documented as of this encounter Procedures Procedure Name Priority Date/Time Associated Diagnosis Comments SCAN - RADIOLOGY/IMAGING 04/21/2020 documented in this encounter Results * SCAN - RADIOLOGY/IMAGING (04/21/2020) Anatomical Region Laterality Modality Other us Provider Scanning Final Result documented in this encounter Visit Diagnoses Not on filedocumented in this encounter Additional Health Concerns Infection Onset Date Last Indicated Resolved Time COVID: Suspected 11/03/2020 11/03/2020 11/03/2020 3:32 PM CDT documented as of this encounter Care Teams Chain Person Relationship Specialty Start Date End Date Yaya Johnson DO PCP - General 06/11/16 06/23/20 Charo Kincaid PA PCP - General Physician Operations Plant Attendant 06/24/20 documented as of this encounter
--- OUTSIDE RECORDS SUMMARY | 2024-12-05 00:45 | XMS_ITS | Clinical Summary ---
Author Organization [facility] Address [address] [place] [address] Care Team Providers Care Diesel Engine Operator Name Role Phone Charo Kincaid Primary Care Pr ovider Allergies Active Allergy Reactions Criticality Noted Date Comments Penicillins Medications glucagon (Baqsimi) 3 mg/actuation spray,non-aeroso lIndications:Typ e 1 diabetes mellitus with hypoglycemia and without coma (HCC) Administer to 1 nostril for treatment of hypoglycemia 2 each 6 0 Active insulin syringe-needle U-100 (BD SafetyGlide Insulin Syringe) 0.3 mL 31 gauge x 5/16 syringeIndicatio ns:Type 1 diabetes mellitus with hypoglycemia and without coma (HCC) Use to inject 1-4 times daily as directed 100 each 0 Active acetone, urine, test (acetone, urine, test) stripIndications :Type 1 diabetes mellitus with hypoglycemia and without coma (HCC) Test first AM urine and as directed 100 strip 0 Active blood glucose diagnostic (OneTouch Verio test strips) stripIndications :Type 1 diabetes mellitus with hypoglycemia and without coma (HCC) Test 4 - 8X daily 600 each 3 2 Active insulin lispro (HumaLOG, ADMELOG) 100 unit/mL vial for injectionIndicat ions:Type 1 diabetes mellitus with hypoglycemia and without coma (HCC) ADMINISTER 90 UNITS UNDER THE SKIN DAILY. INSULIN PUMP 90 mL 3 5 Active Dexcom G7 Sensor deviceIndication s:Type 1 diabetes mellitus with hypoglycemia and without coma (HCC) USE TO MONITOR BLOOD SUGAR CONTINUOUSLY, CHANGE SENSOR EVERY 10 DAYS 9 each 3 5 Active Active Problems Problem Noted Date Diagnosed Date Dyslipidemia 10/05/2024 Abnormal result of other cardiovascular function study 11/13/2023 Acid reflux 12/15/2020 Hypoglycemia unawareness ass ociated with type 1 diabetes mellitus 12/07/2019 Overview (12/07/2019): Worsening in the past year, has resulted in severe insulin reactions. Assessment & Plan (11/08/2020 1:56 PM CDT): Has hypoglycemia unawareness. The goal is to never be low. Continue current pump settings. Keep Baqsimi on hand for emergencies. Assessment & Plan (04/11/2020 10:25 PM DRAGLINE OPERATOR): You clearly have hypoglycemia unawareness. The goal is to never be low. See pump recommendations. Assessment & Plan (12/07/2019 1:00 PM CDT): Hypoglycemia unawareness has become a problem this year, and puts the patient at risk for LOC, seizures, accidents and . I strongly recommend that the patient obtain a Dexcom G6 CGM for safety, monitoring and for insulin dose adjustments. He is currently using a pump that operates on manual mode only, will consider a hybrid closed loop for his next pump. Insulin pump in place 02/25/2018 Assessment & Plan (06/12/2022 7:04 PM CDT): Continue current pump settings. Diabetes management as in diabetes a/p. Assessment & Plan (08/04/2019 6:02 PM CDT): Insulin pump setting changes are listed above. These need to be reviewed when both glucoses (Clarity) and settings (Carelink) can be reviewed together. Assessment & Plan (02/25/2018 9:37 PM DRAGLINE OPERATOR): Continue current pump settings. Diabetes management as in diabetes a/p. Hypertension 06/13/2016 Assessment & Plan (06/12/2022 7:02 PM CDT): Continue lisinopril and check BP at home or pharmacy if and when available. Assessment & Plan (10/17/2021 6:30 PM CDT): BP not at target today, previously better controlled. Will consider starting treatment if persistently >130/80. Assessment & Plan (12/07/2019 1:01 PM CDT): Check BP at home or pharmacy and report back if values are >130/80 mmHg. Continue lisinopril, 10 mg for now. Assessment & Plan (08/04/2019 2:11 PM CDT): Continue lisinopril and check BP at home or pharmacy if and when available. Assessment & Plan (02/25/2018 9:33 PM DRAGLINE OPERATOR): Hypertension is stable with rechecked BP in clinic at goal. Continue lisinopril 10 daily Assessment & Plan (10/22/2017 5:12 PM CDT): Hypertension is stable. Continue lisinopril. Type 1 diabetes mellitus with hypoglycemia 06/30 Overview (12/07/2019): T1DM was diagnosed 04/2015, progressive loss of C-peptide since and glucoses with greater fluctuation. Assessment & Plan (06/12/2022 7:05 PM CDT): Overall, glucose control is excellent. Doing well with Tandem + Control IQ with less hypoglycemia. No known complications. Will continue current pump settings. - Set reminders and alarms to bolus 10 minutes before meals to limit glucose excursions after meals - Opt for lower carbs in diet Assessment & Plan (10/17/2021 6:33 PM CDT): Overall, glucose control is excellent. Doing well with Tandem + Control IQ with less hypoglycemia. No known complications. Will continue current pump settings. - Due for labs - to be done today - Opt for lower carbs in diet - Try to consistently administer mealtime bolus 10 minutes before meals to limit glucose excursions after meals Assessment & Plan (11/08/2020 1:56 PM CDT): Overall, glucose control is excellent. Doing well with Tandem + Control IQ with less hypoglycemia. Will continue current pump settings. - Due for labs at next visit - Opt for lower carbs in diet Assessment & Plan (04/11/2020 10:24 PM DRAGLINE OPERATOR): Overall, glucose control is excellent. It can always be improved, and there are pump issues to discuss. Recommendations: - Check A1c when able - Lower overnight basal rate by 0.1 unit/hr - Lower other basal rates by 0.05 units/hr - Lower carb ratio to 1:7.5 - Opt for lower carbs in your diet - Talk with one of the educators re: Next pump. The current best option is Tandem t:slim X2 with control IQ. Omnipod HCL is due out in the summer. ironSource will have a major upgrade with 780G, also this year. Assessment & Plan (12/07/2019 1:50 PM CDT): T1DM with fluctuating glucoses, often out of range both high and low. My recommendations are: - Check A1c, get labs done from June - Changes to insulin pump settings: Basal: Daytime, 1.5 units/hr, nighttime, 1.3 units/hr Bolus: Carb ratio 1:7; correction, 1:25 - Obtain a Dexcom G6 CGM for safety and monitoring, also for insulin dose adjustments - Keep glucagon handy for treatment of severe low. Assessment & Plan (08/04/2019 6:01 PM CDT): Glucose control appears to have deteriorated for a number of reasons. Loss of C-peptide is highly likely. Additionally the lack of CGM has added to his risk of hyper and hypoglycemic excursions. My recommendations are: - I will re-order the Dexcom G6 CGM - Reduce basal rates to 1.5 units/hr ATC - Change carb ratio to 1:8 - Continue correction of 1:30 - Pump settings and glucose patterns will be reviewed after Dexcom CGM is restarted. Addition issues: - I have ordered Baqsimi, nasal glucagon for time when assistance is needed for hypoglycemia - Syringes and ketone test strips are ordered for management of unexpected high glucoses which could be due to infusion set problems. Labs are ordered, including C-peptide Assessment & Plan (02/25/2018 9:36 PM DRAGLINE OPERATOR): Continues to have good diabetes control, though A1c slightly higher than usual with holiday season. Continue current insulin pump settings. He would benefit from a sensor given history of hypoglycemia and for improved control. Dexcom ordered today. Assessment & Plan (10/22/2017 5:12 PM CDT): Diabetes is stable with A1c of 6.6%, higher than in past but also with less frequent hypoglycemia. Will continue current insulin pump settings. Will plan to initiate dexcom G6 CGM in February. This is both for better glycemic control as well as a significant safety issue given his hypoglycemia overnight with poor hypoglycemia awareness. Check cbc, cmp, lipid panel, c-peptide, microalbumin/cr ratio, TSH today. Resolved Problems Problem Noted Date Diagnosed Date Resolved Date Nausea and vomiting 11/10/2020 12/16/19 Overview (11/10/2020): Added automatically from request for surgery [id number] Early satiety 11/10/2020 12/15/2020 Overview (11/10/2020): Added automatically from request for surgery [id number] Abdominal pain 11/08/2020 12/15/2020 Assessment & Plan (11/08/2020 1:08 PM CDT): Given how well is diabetes is controlled, this is unlikely gastroparesis. Celiac disease screen negative. Agree with GI evaluation. Encounters Date Type Department Care Team Description 10/06/2024 9:30 AM CDT Office Visit [facility] Medicine Endocrinology Metabolism and Lipid [address] [place] [address] [place] [address] Mireille Roberto, TOM Hypoglycemia unawareness associated with type 1 diabetes mellitus (HCC) (Primary Dx); Insulin pump in place; Dyslipidemia from Last 3 Months Surgical History Surgery Date Site/Laterality Comments WEDGE RESECTION OF LUNG Wedge Resection Of Lung - (Added by TW Conv) Medical History Medical History Date Comments Pneumothorax Pneumothorax, le ft - (Added by TW Conv) Other pneumothorax Spontaneous p neumothorax - (Added by TW Conv) Diabetes mellitus 2016 Family History Medical History Relation Name Comments Diabetes type I Brother 1 Type 1 Diabe danilo Mellitus - 2 brothers (Added by TW Conv) Diabetes Brother 2 Singh Diabetes Brother 3 Ramone Hypertension Mother Graciela Hypertension - (Added by TW Conv) Relation Name Status Comments Brother 1 Brother 2 Singh Brother 3 Ramoen Mother Graciela Social History Tobacco Use Types Packs/Day Years Used Date Smoking Tobacco: Some Days Cigarettes Smokeless Tobacco: Never Tobacco Cessation:Ready to Q uit: Not Asked; Counseling Given: Not Answered Comments:On and off since 17 yrs old. Longest break ~8 years. AUDIT-C Answer Date Recorded Q1: How often do you have a drink containing alc ohol? Monthly or less 11/22/2020 Average Number of Drinks Not on file 021 Frequency of Binge Drinking Not on file 06/2020 Sex and Gender Information Value Date Recorded Sex Assigned at Not on file Legal Sex Male 4:03 AM DRAGLINE OPERATOR Gender Identity Not on file Sexual Orientation Not on file Obstetrics History Last Filed Vital Signs Vital Sign Reading Time Taken Comments Blood Pressure 117/80 10/06/2024 9:43 AM CDT Pulse 86 10/06/2024 9:43 AM CDT Temperature 37.2 C (98.9 F) 10/06/2024 9:43 AM CDT Respiratory Rate 20 11/22/2020 11:3 0 AM CDT Oxygen Saturation 97% 11/13/2023 9:24 AM CDT Inhaled Oxygen Concentration - - Weight 94.7 kg (208 lb 12.8 oz) 10/06/2024 9:43 AM CDT Height 182.9 cm (6') 10/06/2024 9:43 AM CDT Body Mass Index 28.32 10/06/2024 9:43 AM CDT Plan of Treatment Health Maintenance Due Date Last Done Comments Depression Screening 1990 Foot Exam 1990 Hepatitis C Screening 1990 Varicella Vaccines (1 of 2 - 13+ 2-dose series) 11/22/2003 Hepatitis B Screening 2008 Regular Well Visit/Exam 18-64 2008 Pneumococcal vaccine <65 (1 of 2 - PCV) 2009 HPV Vaccines (1 - 3-dose SCD M series) 2017 Dilated Eye Exam 01/02/2022 01/02/2021 Albumin Creatinine Ratio, Urine 01/19/2024 01/18/2023, 10/30/2021, 08/26/2018, Additional history exists Lipid Panel 01/19/2024 01/18/2023, 10/19, 12/30/2019, Additional history exists TSH Level 01/19/2024 01/18/2023, 10/19, 12/30/2019, Additional history exists eGFR 01/19/2024 01/18/2023, 10/19, 11/03/2020, Additional history exists Covid-19 Vaccine (3 - 2024-2 6 season) 2024 06/06/2020, 05/16/2020 Influenza Vaccine (#1) 2024 Hemoglobin A1C 04/08/2025 10/06/2024, 12/19, 07/02/2023, Additional history exists DTaP/Tdap/Td Vaccine (7 - Td or Tdap) 03/26/2030 03/26/2020, 09/10/2008, 09/01/1992, Additional history exists Procedures Procedure Name Priority Date/Time Associated Diagnosis Comments POCT HEMOGLOBIN A1C Routine 10/06/2024 9 :45 AM CDT Hypoglycemia unawareness associated with type 1 diabetes mellitus (HCC) POCT GLUCOSE [id number] Routine 10/06/2024 9: 45 AM CDT Hypoglycemia unawareness associated with type 1 diabetes mellitus (HCC) COMPREHENSIVE METABOLIC PANEL Routine 01/18/2023 3:07 PM DRAGLINE OPERATOR Type 1 diabetes mellitus with hypoglycemia and without coma (HCC) LIPID PANEL Routine 01/18/2023 3:07 PM DRAGLINE OPERATOR Type 1 diabetes mellitus with hypoglycemia and without coma (HCC) ALBUMIN CREATININE RATIO, URINE Routine 01/18/2023 3:07 PM DRAGLINE OPERATOR Type 1 diabetes mellitus with hypoglycemia and without coma (HCC) THYROID FUNCTION CASCADE Routine 01/18/2023 3:07 PM DRAGLINE OPERATOR Type 1 diabetes mellitus with hypoglycemia and without coma (HCC) DIABETIC EYE EXAM Routine 01/02/2021 from Last 3 Months or Most Recently Relevant to Health Maintenance Results * POCT glucose (10/06/2024 9:45 AM CDT) Pathologist [facility] Glucose Blood, POC 123 Normal Fasting 70 - 100, Random <200 mg/dL Comment:finger stick Blood 10/06/2024 9:45 AM CDT Mireille Roberto RELAY TELEGRAPHER POINT OF CARE TEST ORDERA BLES Final Result * (ABNORMAL) POCT hemoglobin A1c (10/06/2024 9:45 AM CDT) Pathologist [facility] Hemoglobin A1C, POC 6.6(A) 4.0 - 5.6 % Blood 10/06/2024 9:45 AM CDT us Mireille Roberto RELAY TELEGRAPHER POINT OF CARE TEST ORDERA BLES Final Result * TSH reflex to free T4 (01/18/2023 3:07 PM DRAGLINE OPERATOR) Pathologist [facility] TSH 2.08 0.40 - 4.50 mIU/L [facility] Blood 01/18/2023 3:07 PM DRAGLINE OPERATOR 01/18/2023 3:08 PM DRAGLINE OPERATOR Samantha Zhu MD LAB BLOOD ORDERABLES Final Re sult [facility] [address] [place] [address] * Albumin Creatinine Ratio, Urine (01/18/2023 3:07 PM DRAGLINE OPERATOR) Creatinine, ur 183 20 - 320 mg/dL [facility] Microalbumin, ur 1.2 See Note: mg/dL [facility] Comment: Reference Range: Reference Range Not established Microalbumin/creat ratio 7 <30 mcg/mg creat [facility] Comment: The ADA defines abnormalities in albumin excretion as follows: Albuminuria Category Result (mcg/mg creatinine) Normal to Mildly increased <30 Moderately increased 30-299 Severely increased > OR = 300 The ADA recommends that at least two of three specimens collected within a 3-6 month period be abnormal before considering a patient to be within a diagnostic category. Urine 01/18/2023 3:07 PM DRAGLINE OPERATOR 01/18/2023 3:08 PM DRAGLINE OPERATOR us Samantha Zhu MD LAB URINE ORDERABLES Final Re sult [facility] [address] [place] [address] * (ABNORMAL) Lipid panel (01/18/2023 3:07 PM DRAGLINE OPERATOR) Cholesterol 172 <200 mg/dL [facility] HDL 54 > OR = 40 mg/dL [facility] Triglycerides 56 <150 mg/dL [facility] LDL 104(H) mg/dL (calc) [facility] Comment: Reference range: <100 Desirable range <100 mg/dL for primary prevention; <70 mg/dL for patients with CHD or diabetic patients with > or = 2 CHD risk factors. LDL-C is now calculated using the Jamir-Price calculation, which is a validated novel method providing better accuracy than the Friedewald equation in the estimation of LDL-C. Jamir SS et al. MEHUL. 2013;310(19): 7120-9383 (http://education.[employer]/faq/LPW221) Chol/HDL ratio 3.2 <5.0 (calc) [facility] Non-HDL, (LDL+VLDL) 118 <130 mg/dL (calc) [facility] Comment: For patients with diabetes plus 1 major ASCVD risk factor, treating to a non-HDL-C goal of <100 mg/dL (LDL-C of <70 mg/dL) is considered a therapeutic option. Blood 01/18/2023 3:07 PM DRAGLINE OPERATOR 01/18/2023 3:08 PM DRAGLINE OPERATOR us Samantha Zhu MD LAB BLOOD ORDERABLES Final Re sult [facility] [address] [place] [address] * Comprehensive metabolic panel (01/18/2023 3:07 PM DRAGLINE OPERATOR) Glucose 92 65 - 99 mg/dL [facility] Comment: Fasting reference interval BUN 15 7 - 25 mg/dL [facility] Creatinine 0.79 0.60 - 1.26 mg/dL [facility] eGFR 121 > OR = 60 mL/min/1.7 3m2 [facility] BUN/creat ratio SEE NOTE: 6 - 22 (calc) [facility] Comment: Not Reported: BUN and Creatinine are within reference range. Sodium 140 135 - 146 mmol/L [facility] Potassium, pl 3.7 3.5 - 5.3 mmol/L [facility] Chloride 105 98 - 110 mmol/L [facility] CO2 28 20 - 32 mmol/L [facility] Calcium 9.4 8.6 - 10.3 mg/dL [facility] Protein, sr 7.5 6.1 - 8.1 g/dL [facility] Albumin 4.8 3.6 - 5.1 g/dL [facility] GLOBULIN 2.7 1.9 - 3.7 g/dL (calc) [facility] Alb/glob ratio 1.8 1.0 - 2.5 (calc) [facility] Bilirubin, total 0.9 0.2 - 1.2 mg/dL [facility] Alk phos 57 36 - 130 U/L [facility] AST 12 10 - 40 U/L [facility] ALT (SGPT) 13 9 - 46 U/L [facility] Blood 01/18/2023 3:07 PM DRAGLINE OPERATOR 01/18/2023 3:08 PM DRAGLINE OPERATOR us Samantha Zhu MD LAB BLOOD ORDERABLES Final Re sult [facility] [address] [place] [address] * Diabetic Eye Exam (01/02/2021) us Eladia Dillard OD HEALTH MAINTENANCE Final Resu lt from Last 3 Months or Most Recently Relevant to Health Maintenance Insurance [email or web address] [place] [facility] Member Subscriber Plan / Payer (Ef fective 2023-Present) Name:Kojo Guaman Relation to Subscriber:Self Name:Kojo Guaman Payer ID:[id number] (NAIC) Type:[facility] Address: [address] [facility] H[facility]/PPO Address: [address] [address] [place] [address] [facility] H[facility]/PPO Address: [address] [address] [place] [address] Care Teams Diesel Engine Operator Relationship Specialty Start Date End Date Charo Kincaid PA PCP - General Physician Sales And Production Manager 06/24/20
== END 2024-12-05 02:52 | disposition left against medical advice (07) ==
LOC: ANHED 12-05 00:42
PROVIDERS: PCP Physician Assistant
DX: R55 Syncope and collapse (principal)
CPT/HCPCS: 99199

== ENCOUNTER 2024-12-17 13:41 | Outpatient (CLI) | payer OTHER, SELFPAY ==
--- NOTE | ~2024-12-17 | XR_ITS ---
EXAMINATION: XR ribs LT 2V w CXR 2V, 12/17/2024 14:10 CDT HISTORY: PAIN, fell x 2 weeks ago, pain with movement, COMPARISON: No comparisons available. Findings: No acute fracture or malalignment. No significant degenerative changes. Soft tissues unremarkable. Impression: No acute fracture or malalignment. Reviewed, dictated and finalized at location P. Impression: No acute fracture or malalignment.
== END 2024-12-17 13:42 | disposition home or self-care (01) ==
LOC: GOSHIMG 13:43
PROVIDERS: PCP Physician Assistant; Visit Provider Physician Assistant
DX: R07.89 Other chest pain (principal)
CPT/HCPCS: 71046; 71100

== ENCOUNTER 2024-12-29 08:31 | Outpatient (CLI) | payer OTHER, SELFPAY ==
--- NOTE | 2024-12-29 | ECHO_ITS ---
Patient Info Name: Kojo Guaman Age: 34 years : 1990 Gender: Male Ht: 72 in Wt: 195 lbs BSA: 2.13 m2 HR: 74 bpm BP: 129 / 85 mmHg Technical Quality: Good Exam Date: 12/29/2024 8:55 AM Patient Status: O Admit Date: 12/29/2024 Exam Type: CA echo doppler color flow Complete two-dimensional, color flow and Doppler transthoracic echocardiogram is performed. Magazine Grinder Loader: Manjula Godfrey Attending Provider: Charo Kincaid Summary 1. Complete two-dimensional, color flow and Doppler transthoracic echocardiogram is performed. 2. The transthoracic echocardiogram is normal by two-dimensional, color flow imaging, and Doppler interrogation. Left Ventricle The left ventricle is normal in size and systolic function. The left ventricular ejection fraction is visually estimated to be 60-65%. There is normal diastolic function. There are no regional wall motion abnormalities. Right Ventricle The right ventricle is normal in size and systolic function. Left Atria The left atrium is normal in size. Right Atria The right atrium is normal in size. Atrial Septum The atrial septum is visually intact. Aortic Valve The aortic valve is trileaflet and opens well. There is no aortic regurgitation. Pulmonic Valve The pulmonic valve is normal. There is no pulmonic valve regurgitation. Mitral Valve The mitral valve is normal. There is no mitral regurgitation. Tricuspid Valve The tricuspid valve is normal. There is trace tricuspid regurgitation. Pericardium/Pleural Pericardium is normal in appearance with no evidence for significant pericardial effusion. Inferior Vena Cava Normal inferior vena cava with <50% collapse upon inspiration consistent with elevated right atrial pressure, 8 mmHg. Aorta The aortic root at the level of the sinus of Valsalva measures 3.4 cm in diameter. Left Ventricular Outflow Tract Name Value Normal LVOT 2D LVOT Diameter 2.0 cm LVOT Doppler LVOT Peak Velocity 95 cm/s LVOT Peak Gradient 4 mmHg LVOT Mean Gradient 2 mmHg LVOT VTI 18 cm LVOT VTI/AV VTI Ratio 0.9 LVOT Stroke Volume 59 ml LVOT CO 4.1 l/min LVOT CI 1.9 l/min/m2 Pulmonic Valve Name Value Normal RVOT Doppler RVOT Peak Velocity 76 cm/s RVOT Peak Gradient 2 mmHg PV Doppler PV Peak Velocity 111 cm/s PV Peak Gradient 5 mmHg Mitral Valve Name Value Normal MV Diastolic Function MV E Peak Velocity 75 cm/s MV A Peak Velocity 42 cm/s MV E/A 1.8 MV Decel Time (PW) 203 ms Tricuspid Valve Name Value Normal TV Regurgitation Doppler TR Peak Velocity 203 cm/s TR Peak Gradient 16 mmHg Estimated PAP/RSVP RA Pressure 8 mmHg <=5 PA Systolic Pressure 24 mmHg <36 RV Systolic Pressure 24 mmHg <36 Aorta Name Value Normal Ascending Aorta Ao Root Diameter (MM) 3.4 cm Ao Root Diam Index (MM) 1.6 cm/m2 Aortic Valve Name Value Normal AV Doppler AV Peak Velocity 110 cm/s AV Peak Gradient 5 mmHg AV Mean Gradient 3 mmHg AV VTI 21 cm AV Area (Cont Eq VTI) 2.8 cm2 >=3.0 AV Area (Cont Eq Kalyan) 2.9 cm2 AV DI (Kalyan) 0.87 AV Regurgitation 2D LVOT Area 3.3 cm2 Ventricles Name Value Normal LV Dimensions 2D/MM IVS Diastolic Thickness (2D) 1.2 cm 0.6-1.0 IVS Diastole Thickness (MM) 1.1 cm 0.6-1.0 LVID Diastole (2D) 5.1 cm 4.2-5.8 LVID Diastole (MM) 5.1 cm 4.2-5.8 LVIW Diastolic Thickness (2D) 1.1 cm 0.6-1.0 LVIW Diastolic Thickness (MM) 0.9 cm 0.6-1.0 LVID Systole (2D) 3.4 cm 2.5-4.0 LVID Systole (MM) 3.2 cm 2.5-4.0 LVOT Diameter 2.0 cm LV Mass (2D Cubed) 216.28 g 88.00-224.00 LV Mass Index (2D Cubed) 101 g/m2 49-115 Relative Wall Thickness (2D) 0.43 <=0.42 LV Mass (MM Cubed) 184.94 g 88.00-224.00 LV Mass Index (MM Cubed) 87 g/m2 49-115 Relative Wall Thickness (MM) 0.34 LV Fractional Shortening/Ejection Fraction 2D/MM LV Fractional Shortening (2D) 33 % 25-43 LV Fractional Shortening (MM) 38 % 25-43 LV EF (MM Teichholz) 67 % LV EF (2D Teichholz) 61 % LV Diastolic Volume (4C MOD) 98 ml LV EF (4C MOD) 57 % LV Diastolic Volume (2C MOD) 91 ml LV EF (2C MOD) 66 % LV Diastolic Volume (BP MOD) 95 ml 62-150 LV Diastolic Volume Index (BP MOD) 45 ml/m2 34-74 LV Systolic Volume (BP MOD) 38 ml 21-61 LV Systolic Volume Index (BP MOD) 18 ml/m2 11-31 LV EF (BP MOD) 60 % 52-72 LV Diastolic Length (4C) 8.5 cm LV Systolic Length (4C) 6.4 cm LV Stroke Volume (4C MOD) 56 ml Atria Name Value Normal LA Dimensions LA Dimension (MM) 3.1 cm 3.0-4.0 LA Volume (4C A-L) 30 ml LA Volume (BP A-L) 44 ml RA Dimensions RA Systolic Major Cash Length (4C) 4.2 cm 2.1-2.7 RA Area (4C) 12.7 cm2 <=18.0 Report Signatures
--- OUTSIDE RECORDS SUMMARY | 2024-12-29 08:45 | XMS_ITS | Clinical Summary ---
Author Organization [facility] Address [address] [place] [address] Care Team Providers Care Pattern Cutter Name Role Phone Charo Kincaid Primary Care [...] emergencies. Assessment & Plan (04/11/2020 10:25 PM ASBESTOS TEXTILE SUPERVISOR): You clearly have hypoglycemia unawareness. The goal [...] together. Assessment & Plan (02/25/2018 9:37 PM ASBESTOS TEXTILE SUPERVISOR): Continue current pump settings. Diabetes management as [...] available. Assessment & Plan (02/25/2018 9:33 PM ASBESTOS TEXTILE SUPERVISOR): Hypertension is stable with rechecked BP in [...] diet Assessment & Plan (04/11/2020 10:24 PM ASBESTOS TEXTILE SUPERVISOR): Overall, glucose control is excellent. It can [...] HCL is due out in the summer. Bevii will have a major upgrade with 780G, [...] C-peptide Assessment & Plan (02/25/2018 9:36 PM ASBESTOS TEXTILE SUPERVISOR): Continues to have good diabetes control, though [...] (11/10/2020): Added automatically from request for surgery [id number] Early satiety 11/10/2020 12/15/2020 Overview (11/10/2020): Added automatically from request for surgery [id number] Abdominal pain 11/08/2020 12/15/2020 Assessment & Plan (11/08/2020 1:08 PM CDT): Given how well is diabetes is controlled, this is unlikely gastroparesis. Celiac disease screen negative. Agree with GI evaluation. Encounters Date Type Department Care Team Description 12/15/2024 6:15 PM CDT Office Visit [facility] [address] [place] [address] Noel Chery MD Sebaceous hyperplasia (Primary Dx) 10/06/2024 9:30 AM CDT Office Visit [facility] Endocrinology Metabolism and Lipid [address] [place] [address] [place] [address] Mireille Roberto NP Hypoglycemia unawareness associated with type 1 diabetes mellitus (HCC) (Primary Dx); Insulin pump in place; Dyslipidemia from Last 3 Months Surgical History Surgery Date Site/Laterality Comments WEDGE RESECTION OF LUNG Wedge Resection Of Lung - (Added by Conv) Medical History Medical History Date Comments Pneumothorax Pneumothorax, le ft - (Added by Conv) Other pneumothorax Spontaneous p neumothorax - (Added by Conv) Diabetes mellitus 2016 Family History Medical History Relation Name Comments Diabetes type I Brother 1 Type 1 Diabe danilo Mellitus - 2 brothers (Added by TW Conv) Diabetes Brother 2 Singh Diabetes Brother 3 Ramone Hypertension Mother Graciela Hypertension - (Added by Conv) Relation Name Status Comments Brother 1 Brother 2 Singh Brother 3 Ramone Mother Graciela Social History Tobacco Use Types [...] on file Legal Sex Male 4:03 AM ASBESTOS TEXTILE SUPERVISOR Gender Identity Not on file Sexual Orientation Not on file Last Filed Vital Signs Vital Sign Reading [...] type 1 diabetes mellitus (HCC) POCT GLUCOSE [id number] Routine 10/06/2024 9: 45 AM CDT Hypoglycemia unawareness associated with type 1 diabetes mellitus (HCC) COMPREHENSIVE METABOLIC PANEL Routine 01/18/2023 3:07 PM ASBESTOS TEXTILE SUPERVISOR Type 1 diabetes mellitus with hypoglycemia and without coma (HCC) LIPID PANEL Routine 01/18/2023 3:07 PM ASBESTOS TEXTILE SUPERVISOR Type 1 diabetes mellitus with hypoglycemia and without coma (HCC) ALBUMIN CREATININE RATIO, URINE Routine 01/18/2023 3:07 PM ASBESTOS TEXTILE SUPERVISOR Type 1 diabetes mellitus with hypoglycemia and without coma (HCC) THYROID FUNCTION CASCADE Routine 01/18/2023 3:07 PM ASBESTOS TEXTILE SUPERVISOR Type 1 diabetes mellitus with hypoglycemia and without coma (HCC) DIABETIC EYE EXAM Routine 01/02/2021 from Last 3 Months or Most Recently Relevant to Health Maintenance Results * POCT glucose (10/06/2024 9:45 AM CDT) Glucose Blood, POC 123 Normal Fasting 70 - 100, Random <200 mg/dL Comment:finger stick Blood 10/06/2024 9:45 AM CDT Mireille Roberto TEST FIXTURE DESIGNER POINT OF CARE TEST ORDERA BLES Final Result * (ABNORMAL) POCT hemoglobin A1c (10/06/2024 9:45 AM CDT) Pathologist [facility] Hemoglobin A1C, POC 6.6(A) 4.0 - 5.6 % Blood 10/06/2024 9:45 AM CDT Mireille Roberto NP POINT OF CARE TEST ORDERA BLES Final Result * TSH reflex to free T4 (01/18/2023 3:07 PM ASBESTOS TEXTILE SUPERVISOR) TSH 2.08 0.40 - 4.50 mIU/L [facility] Blood 01/18/2023 3:07 PM ASBESTOS TEXTILE SUPERVISOR 01/18/2023 3:08 PM ASBESTOS TEXTILE SUPERVISOR Samantha Zhu MD LAB BLOOD ORDERABLES Final Re sult [facility] [address] [place] [address] * Albumin Creatinine Ratio, Urine (01/18/2023 3:07 PM ASBESTOS TEXTILE SUPERVISOR) Creatinine, ur 183 20 - 320 mg/dL [...] a diagnostic category. Urine 01/18/2023 3:07 PM ASBESTOS TEXTILE SUPERVISOR 01/18/2023 3:08 PM ASBESTOS TEXTILE SUPERVISOR Samantha Zhu MD LAB URINE ORDERABLES Final Re sult [facility] [address] [place] [address] * (ABNORMAL) Lipid panel (01/18/2023 3:07 PM ASBESTOS TEXTILE SUPERVISOR) Cholesterol 172 <200 mg/dL [facility] [...] factors. LDL-C is now calculated using the Maryjane calculation, which is a validated novel method providing better accuracy than the Friedewald equation in the estimation of LDL-C. Jamir BYNUM et al. MEHUL. 2013;310(19): 6749-1078 (http://education.Scanbuy.[employer]/faq/MWP294) Chol/HDL ratio 3.2 <5.0 (calc) [facility] Non-HDL, (LDL+VLDL) 118 <130 mg/dL (calc) [facility] Comment: For patients with diabetes plus 1 major ASCVD risk factor, treating to a non-HDL-C goal of <100 mg/dL (LDL-C of <70 mg/dL) is considered a therapeutic option. Blood 01/18/2023 3:07 PM ASBESTOS TEXTILE SUPERVISOR 01/18/2023 3:08 PM ASBESTOS TEXTILE SUPERVISOR us Samantha Zhu MD LAB BLOOD ORDERABLES Final Re sult [facility] [address] [address] * Comprehensive metabolic panel (01/18/2023 3:07 PM ASBESTOS TEXTILE SUPERVISOR) Glucose 92 65 - 99 mg/dL [facility] [...] [facility] Blood 01/18/2023 3:07 PM ASBESTOS TEXTILE SUPERVISOR 01/18/2023 3:08 PM ASBESTOS TEXTILE SUPERVISOR us Samantha Zhu MD LAB BLOOD ORDERABLES Final Re sult [facility] [address] [place] [address] * Diabetic Eye Exam (01/02/2021) us Eladia Dillard OD HEALTH MAINTENANCE Final Resu lt from Last 3 Months or Most Recently Relevant to Health Maintenance Insurance COUNTS INCLUDE 234 BEDS AT [facility] Member Subscriber Plan / Payer (Ef fective 2023-Present) Name:Kojo Guaman Relation to Subscriber:Self Name:Kojo Guaman Payer ID:[id number] (NAIC) Type:[facility] Address: [address] [facility] H[facility]/PPO Address: [facility] [address] [place] [address] [facility] H[facility]/PPO Address: [address] [address] [place] [address] Care Teams Pattern Cutter Relationship Specialty Start Date End Date Charo Kincaid PA PCP - General Physician Life Guard 06/24/20
--- OUTSIDE RECORDS SUMMARY | 2024-12-29 08:45 | XMS_ITS | Encounter Summary ---
Author Organization [facility] [employer] [facility] Address [address] [place] [address] Phone Care Team Providers Care Patient Registration Clerk Name Role Phone Yaya Johnson DO Primary Care Provider +1- [phone] Charo Kincaid Primary Care Pr ovider Encounter Details Date Type Department Care Team (Late st Contact Info) Description 04/21/2020 Orders Only [facility] Scanning, Provider Social History Tobacco Use Types Packs/Day Years Used Date Smoking Tobacco: Never Sex and Gender Information Value Date Recorded Sex Assigned at Not on file Legal Sex Male 4:03 AM SENIOR CONSTRUCTION PROJECT MANAGER Gender Identity Not on file Sexual [...] documented as of this encounter Care Teams Patient Registration Clerk Relationship Specialty Start Date End Date Yaya Johnson DO PCP - General 06/11/16 06/23/20 Charo Kincaid PA PCP - General Physician Pattern Grader Cutter 06/24/20 documented as of this encounter
--- OUTSIDE RECORDS SUMMARY | 2024-12-29 08:45 | XMS_ITS | Clinical Summary ---
Author Organization [facility] Address [address] [place] [address] Care Team Providers Care Child Protection Specialist Name Role Phone Unavailable Primary Care Provider Unavailabl e Source Comments [facility],non-owned Affiliates and Associated Physician Practices is amultiple site organization consisting of ambulatory clinics and hospital sitesin [place] and [place]. This disclosure is being madepursuant to the Care Everywhere program and may not contain all information available regarding this patient. Last updated 17.[facility] [employer] Social History Tobacco Use Types Packs/Day Years [...]
--- OUTSIDE RECORDS SUMMARY | 2024-12-29 08:45 | XMS_ITS | Encounter Summary ---
Author Organization [facility] [employer] of [facility] Address [address] [place] [address] Phone Care Team Providers Care Halftone Operator Name Role Phone Yaya Johnson DO Primary Care Provider +1- [phone] Charo Kincaid Primary Care Pr ovider Encounter Details Date Type Department Care Team (Late st Contact Info) Description 04/25/2020 Orders Only [facility] Scanning, Provider Social History Tobacco Use Types Packs/Day Years Used Date Smoking Tobacco: Never Sex and Gender Information Value Date Recorded Sex Assigned at Not on file 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
--- OUTSIDE RECORDS SUMMARY | 2024-12-29 08:45 | XMS_ITS | Encounter Summary ---
Author Organization [facility] Address [address] [place] [address] Care Team Providers Care Scenic Artist Name Role Phone Unavailable Primary Care Provider Unavailabl e Encounter Details Date Type Department Care Team (Late st Contact Info) Description 11/02/2020 Lab Requisition [facility] [address] [place] [address] Charo Moody PA [address] [place] [address] Social History Tobacco Use Types [...] CBC WITH DIFFERENTIAL (11/02/2020 9:37 AM CDT) [facility] Signature WBC 7.2 4.4 - 10.7 x10E9/L 11/02/2020 1:21 PM CDT [facility] WBC Corrected 11/02/2020 1:21 PM CDT [facility] RBC 5.35 3.80 - 5.40 x10E12/L 11/02/2020 1: PM CDT [facility] Hemoglobin 16.0 12.0 - 17.6 gm/dL 11/02/2020 1: PM CDT [facility] Hematocrit 46.3 35.2 - 51.7 % 11/02/2020 1: PM CDT [facility] MCV 86.5 80.7 - 98.3 fl 11/02/2020 1: PM CDT [facility] MCH 29.9 26.7 - 34.0 pg 11/02/2020 1: PM CDT [facility] MCHC 34.6 30.8 - 35.9 gm/dL 11/02/2020 1: PM CDT [facility] Platelet Count 272 153 - 416 x10E9/L 11/02/2020 1: PM CDT [facility] RDW-CV 11.9(L) 12.1 - 14.9 % 11/02/2020 1: PM CDT [facility] MPV 9.5 9.4 - 12.9 fl 11/02/2020 1: PM CDT [facility] Neutrophils % 67.3 44.0 - 73.0 % 11/02/2020 1: PM CDT [facility] Lymphocytes % 25.0 20.0 - 43.0 % 11/02/2020 1: PM CDT [facility] Monocytes % 5.7 5.0 - 13.0 % 11/02/2020 1: PM CDT [facility] Eosinophils % 0.6 0.0 - 6.0 % 11/02/2020 1: PM CDT [facility] Basophils % 1.0 0.0 - 2.0 % 11/02/2020 1: PM CDT [facility] Immature Granulocytes 0.4 0 - 1 % 11/02/2020 1: PM CDT [facility] Neutrophil Absolute 4.83 2.01 - 7.14 x10E9/L 11/02/2020 1: PM CDT [facility] Lymphocytes Absolute 1.79 1.07 - 3.94 x10E9/L 11/02/2020 1: PM CDT [facility] Monocytes Absolute 0.41 0.26 - 1.07 x10E9/L 11/02/2020 1:21 PM CDT [facility] Eosinophils Absolute 0.04 0 - 0.47 x10E9/L 11/02/2020 1:21 PM CDT [facility] Basophils Absolute 0.07 0 - 0.08 x10E9/L 11/02/2020 1:21 PM CDT [facility] Immature Granulocytes Absolute 0.03 0.00 - 0.06 x10E9/L 11/02/2020 1:21 PM CDT [facility] nRBC Auto 0 /100 WBC 11/02/2020 1:21 PM CDT [facility] Blood BLOOD SPECIMEN / Unknown Venipuncture / Unknown 11/02/2020 9:37 AM CDT 11/02/2020 1:08 PM CDT [facility]o [facility]RIG[facility] - HEMATOLOGY ORDERABLES Final Result Performing Organization Address City/[facility]/ZIP Co de Phone Number [facility] [address] [place] [address] * LIPASE BLOOD (11/02/2020 9:37 AM CDT) Pathologist [facility] Lipase 8 8 - 78 U/L 11/02/2020 1:38 PM CDT [facility] Blood BLOOD SPECIMEN / Unknown Venipuncture / Unknown 11/02/2020 9:37 AM CDT 11/02/2020 1:08 PM CDT Charo RODRIGUE[facility] - CHEMISTRY ORDERABLES Final Result [facility] [address] [place] [address] * (ABNORMAL) COMPREHENSIVE METABOLIC PANEL (11/02/2020 9:37 AM CDT) Pathologist [facility] Glucose 87 70 - 105 mg/dL 11/02/2020 1:33 PM CDT [facility] Sodium 141 136 - 145 mmol/L 11/02/2020 1:33 PM CDT [facility] Potassium 4.3 3.5 - 5.1 mmol/L 11/02/2020 1:33 PM CDT [facility] Chloride 104 98 - 107 mmol/L 11/02/2020 1:33 PM CDT [facility] CO2 24 23 - 31 mmol/L 11/02/2020 1:33 PM CDT [facility] Calcium 9.4 8.4 - 10.4 mg/dL 11/02/2020 1:33 PM CDT [facility] Anion Gap 13 8 - 18 mmol/L 11/02/2020 1:33 PM CDT [facility] BUN 14 8.9 - 20.6 mg/dL 11/02/2020 1:33 PM CDT [facility] Creatinine 1.01 0.72 - 1.25 mg/dL 11/02/2020 1:33 PM T [facility] Alkaline Phosphatase 65 40 - 150 U/L 11/02/2020 1:33 PM CDT [facility] ALT 10 0 - 61 U/L 11/02/2020 1:33 PM CDT [facility] AST 16 5 - 34 U/L 11/02/2020 1:33 PM CDT [facility] Protein Total 7.5 6.4 - 8.3 gm/dL 11/02/2020 1:33 PM CDT [facility] Albumin 4.8 3.5 - 5.2 gm/dL 11/02/2020 1:33 PM CDT [facility] Bilirubin Total 1.3(H) 0.2 - 1.2 mg/dL 11/02/2020 1:33 PM CDT [facility] eGFR by MDRD >60 >60 mL/min/1.7 3m2 11/02/2020 1:33 PM CDT [facility] eGFR by MDRD >60 >60 mL/min/1.7 3m2 11/02/2020 1:33 PM CDT [facility] Blood BLOOD SPECIMEN / Unknown Venipuncture / Unknown 11/02/2020 9:37 AM CDT 11/02/2020 1:08 PM CDT us Charo RODRIGUEZ LAB - CHEMISTRY ORDERABLES Final Result [facility] [address] [place] [address] * AMYLASE BLOOD (11/02/2020 9:37 AM CDT) Amylase 37 25 - 125 U/L 11/02/2020 1:33 PM CDT [facility] Blood BLOOD SPECIMEN / Unknown Venipuncture / Unknown 11/02/2020 9:37 AM CDT 11/02/2020 1:08 PM CDT us Charo RODRIGUEZ [facility] - CHEMISTRY ORDERABLES Final Result [facility] [address] [place], [place] [id number] documented in this encounter Visit Diagnoses Not on filedocumented in this encounter
== END 2024-12-29 08:32 | disposition home or self-care (01) ==
PROVIDERS: PCP Physician Assistant; Visit Provider Physician Assistant
DX: R55 Syncope and collapse (principal)
CPT/HCPCS: 93306

== ENCOUNTER 2025-01-01 07:55 | Outpatient (CLI) | payer OTHER, SELFPAY ==
--- OUTSIDE RECORDS SUMMARY | 2025-01-01 07:58 | XMS_ITS | Encounter Summary ---
Author Organization [facility] [employer] [facility] Address [address] [place] [address] Phone Care Team Providers Care Safety Physician Name Role Phone Yaya Johnson DO Primary Care Provider +1- [phone] Charo Kincaid Primary Care Pr ovider Encounter Details Date Type Department Care Team (Late st Contact Info) Description 04/21/2020 Orders Only [facility] Scanning, Provider Social History Tobacco Use Types Packs/Day Years Used Date Smoking Tobacco: Never Sex and Gender Information Value Date Recorded Sex Assigned at Not on file 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
--- OUTSIDE RECORDS SUMMARY | 2025-01-01 07:59 | XMS_ITS | Clinical Summary ---
Author Organization [facility] Address [address] [place] [address] Care Team Providers Care Head Of Geography Name Role Phone Unavailable Primary Care Provider Unavailabl e Source Comments [facility],non-owned Affiliates and Associated Physician Practices is amultiple site organization consisting of ambulatory clinics and hospital sitesin [place], [place], [place] and [place]. This disclosure is being madepursuant to the Care Everywhere program and may not contain all information available regarding this patient. Last updated 17.[facility] [employer] Social History Tobacco Use Types Packs/Day Years [...]
--- OUTSIDE RECORDS SUMMARY | 2025-01-01 07:59 | XMS_ITS | Encounter Summary ---
Author Organization [facility] Address [address] [address] Care Team Providers Care Snag Grinder Name Role Phone Unavailable Primary Care Provider Unavailabl e Encounter Details Date Type Department Care Team (Late st Contact Info) Description 11/02/2020 Lab Requisition [facility] [address] [place] [address] Charo Moody PA [address] [place] [address] Social History Tobacco Use Types [...] CBC WITH DIFFERENTIAL (11/02/2020 9:37 AM CDT) [facility] Signature WBC 7.2 4.4 - 10.7 x10E9/L 11/02/2020 1:21 PM CDT [facility] WBC Corrected 11/02/2020 1:21 PM CDT [facility] RBC 5.35 3.80 - 5.40 x10E12/L 11/02/2020 1: PM CDT [facility] Hemoglobin 16.0 12.0 - 17.6 gm/dL 11/02/2020 1: PM CDT [facility] Hematocrit 46.3 35.2 - 51.7 % 11/02/2020 1: PM CDT [facility] MCV 86.5 80.7 - 98.3 fl 11/02/2020 1: PM CDT [facility] MCH 29.9 26.7 - 34.0 pg 11/02/2020 1: PM CDT [facility] MCHC 34.6 30.8 - 35.9 gm/dL 11/02/2020 1: PM CDT [facility] Platelet Count 272 153 - 416 x10E9/L 11/02/2020 1: PM CDT [facility] RDW-CV 11.9(L) 12.1 - 14.9 % 11/02/2020 1: PM CDT [facility] MPV 9.5 9.4 - 12.9 fl 11/02/2020 1: PM CDT [facility] Neutrophils % 67.3 44.0 - 73.0 % 11/02/2020 1: PM CDT [facility] Lymphocytes % 25.0 20.0 - 43.0 % 11/02/2020 1: PM CDT [facility] Monocytes % 5.7 5.0 - 13.0 % 11/02/2020 1: PM CDT [facility] Eosinophils % 0.6 0.0 - 6.0 % 11/02/2020 1: PM CDT [facility] Basophils % 1.0 0.0 - 2.0 % 11/02/2020 1: PM CDT [facility] Immature Granulocytes 0.4 0 - 1 % 11/02/2020 1: PM CDT [facility] Neutrophil Absolute 4.83 2.01 - 7.14 x10E9/L 11/02/2020 1: PM CDT [facility] Lymphocytes Absolute 1.79 1.07 - 3.94 x10E9/L 11/02/2020 1: PM CDT [facility] Monocytes Absolute 0.41 0.26 - 1.07 x10E9/L 11/02/2020 1:21 PM CDT [facility] Eosinophils Absolute 0.04 0 - 0.47 x10E9/L 11/02/2020 1:21 PM CDT [facility] Basophils Absolute 0.07 0 - 0.08 x10E9/L 11/02/2020 1:21 PM CDT [facility] Immature Granulocytes Absolute 0.03 0.00 - 0.06 x10E9/L 11/02/2020 1:21 PM CDT [facility] nRBC Auto 0 /100 WBC 11/02/2020 1:21 PM CDT [facility] Blood BLOOD SPECIMEN / Unknown Venipuncture / Unknown 11/02/2020 9:37 AM CDT 11/02/2020 1:08 PM CDT [facility] - HEMATOLOGY ORDERABLES Final Result Performing Organization Address City/[facility]/ZIP Co de Phone Number [facility] [address] [place] [id number] * LIPASE BLOOD (11/02/2020 9:37 AM CDT) Pathologist [facility] Lipase 8 8 - 78 U/L 11/02/2020 1:38 PM CDT [facility] Blood BLOOD SPECIMEN / Unknown Venipuncture / Unknown 11/02/2020 9:37 AM CDT 11/02/2020 1:08 PM CDT [facility] - CHEMISTRY ORDERABLES Final Result [facility] [address] [place] [id number] * (ABNORMAL) COMPREHENSIVE METABOLIC PANEL (11/02/2020 9:37 AM CDT) Pathologist [facility] Glucose 87 70 - 105 mg/dL 11/02/2020 1:33 PM CDT [facility] Sodium 141 136 - 145 mmol/L 11/02/2020 1:33 PM CDT [facility] Potassium 4.3 3.5 - 5.1 mmol/L 11/02/2020 1:33 PM CDT [facility] Chloride 104 98 - 107 mmol/L 11/02/2020 1:33 PM CDT [facility] CO2 24 23 - 31 mmol/L 11/02/2020 1:33 PM CDT [facility] Calcium 9.4 8.4 - 10.4 mg/dL 11/02/2020 1:33 PM CDT [facility] Anion Gap 13 8 - 18 mmol/L 11/02/2020 1:33 PM CDT [facility] BUN 14 8.9 - 20.6 mg/dL 11/02/2020 1:33 PM CDT [facility] Creatinine 1.01 0.72 - 1.25 mg/dL 11/02/2020 1:33 PM T [facility] Alkaline Phosphatase 65 40 - 150 U/L 11/02/2020 1:33 PM CDT [facility] ALT 10 0 - 61 U/L 11/02/2020 1:33 PM CDT [facility] AST 16 5 - 34 U/L 11/02/2020 1:33 PM CDT [facility] Protein Total 7.5 6.4 - 8.3 gm/dL 11/02/2020 1:33 PM CDT [facility] Albumin 4.8 3.5 - 5.2 gm/dL 11/02/2020 1:33 PM CDT [facility] Bilirubin Total 1.3(H) 0.2 - 1.2 mg/dL 11/02/2020 1:33 PM CDT [facility] eGFR by MDRD >60 >60 mL/min/1.7 3m2 11/02/2020 1:33 PM CDT [facility] eGFR by MDRD >60 >60 mL/min/1.7 3m2 11/02/2020 1:33 PM CDT [facility] Blood BLOOD SPECIMEN / Unknown Venipuncture / Unknown 11/02/2020 9:37 AM CDT 11/02/2020 1:08 PM CDT us [facility]o [facility] - CHEMISTRY ORDERABLES Final Result [facility] [address] [place] [address] * AMYLASE BLOOD (11/02/2020 9:37 AM CDT) Amylase 37 25 - 125 U/L 11/02/2020 1:33 PM CDT [facility] Blood BLOOD SPECIMEN / Unknown Venipuncture / Unknown 11/02/2020 9:37 AM CDT 11/02/2020 1:08 PM CDT us [facility] - CHEMISTRY ORDERABLES Final Result [facility] [address] [place], [place] [id number] documented in this encounter Visit Diagnoses Not on filedocumented in this encounter
--- OUTSIDE RECORDS SUMMARY | 2025-01-01 07:59 | XMS_ITS | Encounter Summary ---
Author Organization [facility] [employer] [facility] Address [address] [place] [address] Phone Care Team Providers Care Foster Parent Name Role Phone Yaya Johnson DO Primary Care Provider [phone] Charo Kincaid Primary Care Pr ovider Encounter Details Date Type Department Care Team (Late st Contact Info) Description 04/25/2020 Orders Only [facility] Scanning, Provider Social History Tobacco Use Types Packs/Day Years Used Date Smoking Tobacco: Never Sex and Gender Information Value Date Recorded Sex Assigned at Not on file 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
--- OUTSIDE RECORDS SUMMARY | 2025-01-01 08:00 | XMS_ITS | Clinical Summary ---
Author Organization [facility] Address [address] [place] [address] Care Team Providers Care Deputy Felony Clerk Name Role Phone Charo Kincaid Primary Care [...] emergencies. Assessment & Plan (04/11/2020 10:25 PM X RAY CONTROL EQUIPMENT REPAIRER): You clearly have hypoglycemia unawareness. The goal [...] together. Assessment & Plan (02/25/2018 9:37 PM X RAY CONTROL EQUIPMENT REPAIRER): Continue current pump settings. Diabetes management as [...] available. Assessment & Plan (02/25/2018 9:33 PM X RAY CONTROL EQUIPMENT REPAIRER): Hypertension is stable with rechecked BP in [...] diet Assessment & Plan (04/11/2020 10:24 PM X RAY CONTROL EQUIPMENT REPAIRER): Overall, glucose control is excellent. It can [...] HCL is due out in the summer. ncyclo will have a major upgrade with 780G, [...] C-peptide Assessment & Plan (02/25/2018 9:36 PM X RAY CONTROL EQUIPMENT REPAIRER): Continues to have good diabetes control, though [...] (11/10/2020): Added automatically from request for surgery [id number] Early satiety 11/10/2020 12/15/2020 Overview (11/10/2020): Added automatically from request for surgery [id number] Abdominal pain 11/08/2020 12/15/2020 Assessment & Plan (11/08/2020 1:08 PM CDT): Given how well is diabetes is controlled, this is unlikely gastroparesis. Celiac disease screen negative. Agree with GI evaluation. Encounters Date Type Department Care Team Description 12/15/2024 6:15 PM CDT Office Visit [facility] Medicine Dermatology [address] [place] [address] Noel Chery MD Sebaceous hyperplasia (Primary Dx) 10/06/2024 9:30 AM CDT Office Visit [facility] Endocrinology Metabolism and Lipid [address] [place] [address] [place] [address] Mireille Roberto NP Hypoglycemia unawareness associated with [...] on file Legal Sex Male 4:03 AM X RAY CONTROL EQUIPMENT REPAIRER Gender Identity Not on file Sexual Orientation [...] type 1 diabetes mellitus (HCC) POCT GLUCOSE [id number] Routine 10/06/2024 9: 45 AM CDT Hypoglycemia unawareness associated with type 1 diabetes mellitus (HCC) COMPREHENSIVE METABOLIC PANEL Routine 01/18/2023 3:07 PM X RAY CONTROL EQUIPMENT REPAIRER Type 1 diabetes mellitus with hypoglycemia and without coma (HCC) LIPID PANEL Routine 01/18/2023 3:07 PM X RAY CONTROL EQUIPMENT REPAIRER Type 1 diabetes mellitus with hypoglycemia and without coma (HCC) ALBUMIN CREATININE RATIO, URINE Routine 01/18/2023 3:07 PM X RAY CONTROL EQUIPMENT REPAIRER Type 1 diabetes mellitus with hypoglycemia and without coma (HCC) THYROID FUNCTION CASCADE Routine 01/18/2023 3:07 PM X RAY CONTROL EQUIPMENT REPAIRER Type 1 diabetes mellitus with hypoglycemia and without coma (HCC) DIABETIC EYE EXAM Routine 01/02/2021 from Last 3 Months or Most Recently Relevant to Health Maintenance Results * POCT glucose (10/06/2024 9:45 AM CDT) Glucose Blood, POC 123 Normal Fasting 70 - 100, Random <200 mg/dL Comment:finger stick Blood 10/06/2024 9:45 AM CDT Mireille Roberto LIVING SUPERVISOR POINT OF CARE TEST ORDERA BLES Final Result * (ABNORMAL) POCT hemoglobin A1c (10/06/2024 9:45 AM CDT) Pathologist [facility] Hemoglobin A1C, POC 6.6(A) 4.0 - 5.6 % Blood 10/06/2024 9:45 AM CDT Mireille Roberto NP POINT OF CARE TEST ORDERA BLES Final Result * TSH reflex to free T4 (01/18/2023 3:07 PM X RAY CONTROL EQUIPMENT REPAIRER) TSH 2.08 0.40 - 4.50 mIU/L [facility] Blood 01/18/2023 3:07 PM X RAY CONTROL EQUIPMENT REPAIRER 01/18/2023 3:08 PM X RAY CONTROL EQUIPMENT REPAIRER Samantha Zhu MD LAB BLOOD ORDERABLES Final Re sult [facility] [address] [place] [address] * Albumin Creatinine Ratio, Urine (01/18/2023 3:07 PM X RAY CONTROL EQUIPMENT REPAIRER) Creatinine, ur 183 20 - 320 mg/dL [...] a diagnostic category. Urine 01/18/2023 3:07 PM X RAY CONTROL EQUIPMENT REPAIRER 01/18/2023 3:08 PM X RAY CONTROL EQUIPMENT REPAIRER Samantha Zhu MD LAB URINE ORDERABLES Final Re sult [facility] [address] [place] [address] * (ABNORMAL) Lipid panel (01/18/2023 3:07 PM X RAY CONTROL EQUIPMENT REPAIRER) Cholesterol 172 <200 mg/dL [facility] [...] LDL-C. Jamir BYNUM et al. MEHUL. 2013;310(19): 5933-2416 (http://education.EQUISO.AppAssure Software/faq/CAA770) Chol/HDL ratio 3.2 <5.0 (calc) [facility] Non-HDL, (LDL+VLDL) 118 <130 mg/dL (calc) [facility] Comment: For patients with diabetes plus 1 major ASCVD risk factor, treating to a non-HDL-C goal of <100 mg/dL (LDL-C of <70 mg/dL) is considered a therapeutic option. Blood 01/18/2023 3:07 PM X RAY CONTROL EQUIPMENT REPAIRER 01/18/2023 3:08 PM X RAY CONTROL EQUIPMENT REPAIRER us Samantha Zhu MD LAB BLOOD ORDERABLES Final Re sult [facility] [address] [address] * Comprehensive metabolic panel (01/18/2023 3:07 PM X RAY CONTROL EQUIPMENT REPAIRER) Glucose 92 65 - 99 mg/dL [facility] [...] [facility] Blood 01/18/2023 3:07 PM X RAY CONTROL EQUIPMENT REPAIRER 01/18/2023 3:08 PM X RAY CONTROL EQUIPMENT REPAIRER us Samantha Zhu MD LAB BLOOD ORDERABLES Final Re sult [facility] [address] [place] [address] * Diabetic Eye Exam (01/02/2021) us Eladia Dillard OD HEALTH MAINTENANCE Final Resu lt from Last 3 Months or Most Recently Relevant to Health Maintenance Insurance [facility] CHOICE PLUS [facility] CHOICE PLUS Care Teams Deputy Felony Clerk Relationship Specialty Start Date End Date Charo Kincaid PA PCP - General Physician Business Support 06/24/20
--- OUTSIDE RECORDS SUMMARY | 2025-01-01 08:00 | XMS_ITS | Data Portability ---
Author Organization ALICIA LÓPEZDavid Rowe Address [address] [facility] [place] [address] Care Team Providers Care Product Safety Tester Name Role Phone CHARO KINCAID Primary Care Provider Unavailab le Assessment No assessment recorded. Plan of Treatment Reminders Order Date Submit Date Provider Last Modified By Organization Details Last Modified Time Details Appointments ANY 15 2025 09:00A M JENNIFER Bunch Not available Not available Not available Lab TSH + free T4, serum 2023 024 [email or web address] [facility], [address], [place], [address], 05/16/2023 16:35:25 CMP, serum or plasma 2023 024 [email or web address] [facility], [address], [place], [address], 05/16/2023 16:35:25 CBC w/ auto diff 2023 024 [email or web address] [facility], [address], [place], [address], 05/16/2023 16:35:25 lipid panel, serum 2023 024 [email or web address] [facility], [address], [place], [address], 05/16/2023 16:35:25 vitami n B12 + folate , serum or blood 2023 024 [email or web address] [facility], [address], [place], [address], 05/16/2023 16:35:26 vitami n D, 25-hyd bruno, total, serum 2023 024 [email or web address] [facility], [address], [place], [address], 05/16/2023 16:35:26 testos terone , free + total, serum 2023 024 DALY [facility], [address], [place], [address], 05/13/2023 11:44:25 Referral dermat ologis t referr al [address] [facility]), [address] [facility], [address], [place], [address], 12/15/2024 16:16:04 Procedures None record ed. Surgeries None record ed. Imaging XR, ribs, unilat eral, 2 view 2024 025 [facility], [address] [place] [address] , [address], [place], [address], 12/17/2024 16:46:44 XR, chest, 2 view [address] [facility], [address] [place] [address] , [address], [place], [address], 12/18/2024 12:14:22 US, echoca rdiogr am, transt horaci c, comple te, w/ color flow 2024 025 [facility] ([facility]iology [facility]), [address], [place], [address], 12/17/2024 15:27:52 event monito r 2024 025 [facility] ([facility]iology [facility]), [address], [place], [address], 12/17/2024 15:28:09 MRI, brain, w/wo contra st 2024 025 [facility] (Imaging), [address], [place], [address], 12/27/2024 10:11:57 exerci se stress test 2023 024 [facility], [address], [address], [place], [address], 06/07/2023 16:41:53 Medication Orders omepra zole 40 mg capsul e,jonah yed releas e 2024 025 [id number], [address], [place], [id number], 12/08/2024 16:12:17 Zithro max Z-Zacarias 250 mg tablet [email or web address] [id number], [address], [place], [id number], 06/08/2023 15:32:58 Patient TargetsNo targets recorded. Patient Instructions Encounter Date Encounter Id Patient Instructions Last Modified By Organization Details Last Modified Time 10/13/2024 [id number] A healthy lifestyle: care instructions [email or web address] Not available 10/13/2024 10:31:00 Reason for Referral Clinical Pharmacy Specialist Referral for L esion of nose Referring Physician: Charo Kincaid, Internal Medicine, Encounter Date: 10/13/2024 Results Created Date Observation Date Name Description Value Unit Range Abnormal Flag Note LastModifiedBy Organization Detail LastModifiedTime 10/07/1910/06/2024 Hemog lobin A1c/H emogl obin. total in Blood hemoglobin A1C, POC 6.6 % low: 4%high : 5.6% abnormal Not Available Not Available 10/13/2024 10:07:16 10/07/19 25 10/06/2024 Hemog lobin A1c/H emogl obin. total in Blood interpretati on and review of laboratory results Abnorm al Not Available Not Available 10:07:16 06/07/19 24 06/07/2023 exerc ise stres s test No observ ation record ed. [email or web address] [facility] [address], [place], [address], 06/10/2023 10:17:39 06/10/19 24 06/07/2023 exerc ise stres s test No observ ation record ed. [email or web address] [facility] [address], [place], [address], 06/10/2023 14:18:40 12/18/19 25 12/17/2024 XR, ribs, unila teral , 2 view No observ ation record ed. DALY [facility] [address], [place], [address], 12/19/2024 19:29:26 Result Notes None recorded. Problems Name Problem SNOMED Code Status Onset Date Resolution Date Notes Provider Name and Address Organization Details Recorded Time Type 1 diabetes mellitus 54854457 Active 2023 Alee Angel [facility], [place] - [facility] 4 11:06:39 Overweight in adulthood with body mass index of 25 or more but less than 30 452945778 Active 2024 JENNIFER Bunch Attn: Olesya g,[address] [facility], [place], [address], [place] - [facility] 5 23:20:31 Gastroesophage al reflux disease 486272070 Active 2024 JENNIFER Bunch Attn: Accountin g,[address] [facility], [place], [address], [place] - [facility] 5 19:58:23 Long-term current use of insulin 679597662 Active 2024 JENNIFER Bunch Attn: Olesya willingham,[address] [facility], [place], [address], [facility] 5 19:58:57 Problem Notes None recorded. Medical Equipment None Reported. Allergies Allergen ID Allergen Name Allergen Category Reaction Reaction Severity Criticality Documentation Date Start Date Code Code System Note Provider Name and Address Organization Details Recorded Time Product containin g penicilli n (product) medicatio n Not available Not available Not available 04/22/2023 71703 8001 SNOMED Trisha Ross MA [facility], [place] - [facility] 4 09:25:37 Medications Name Sig Start Date Stop Date Status Note LastModified by Organization Details LastModified Time azithromyci n 250 mg tablet TAKE 2 TABLETS (500 MG) BY ORAL ROUTE ONCE DAILY FOR 1 DAY THEN 1 TABLET (250 MG) BY ORAL ROUTE ONCE DAILY FOR 4 DAYS 06/07 completed Not Available Not Available Not Available omeprazole 40 mg capsule,del ayed release TAKE 1 CAPSULE BY MOUTH EVERY DAY active Not Available Not Available No t Available insulin lispro (U-100) 100 unit/mL subcutaneou [...] 04/22/2023 124/82 mm[Hg] JENNIFER Bunch Attn: Accounting,[address] [facility], [place], [address], [place] - [facility] 04/22/2023 09:50:43 Date Recorded Body weight Body mass index (BMI) Body height Heart rate Oxygen saturation Oxygen saturation in Arterial blood by Pulse oximetry Systolic And Diastolic Provider Name and Address Organization Details Last Updated DateTime 4 06743.9 2 g 26.3 kg/m2 182.88 cm 80 /min 99 % 99 % 124/84 mm[Hg] Trisha Ross MA [facility] 4 09:25:17 Date Recorded Respiratory rate Provider Name a nd Address Organization Details Last Updated DateTime 10/13/2024 16 /min JENNIFER Bunch Attn: Accounting,[address] [place], [address], [facility] 10/13/2024 10:21:35 Date Recorded Body height Body mass index (BMI) Body weight Oxygen saturation Oxygen saturation in Arterial blood by Pulse oximetry Heart rate Systolic And Diastolic Provider Name and Address Organization Details Last Updated DateTime 5 182.88 cm 26.6 kg/m2 44799.1 g 98 % 98 % 69 /min 126/82 mm[Hg] Laquita Amaya MA [facility] 5 09:59:39 Date Recorded Respiratory rate Provider Name a nd Address Organization Details Last Updated DateTime 12/08/2024 16 /min JENNIFER Bunch Attn: Accounting,[address] [place], [address], [facility] 12/08/2024 16:06:22 Date Recorded Body height Body mass index (BMI) Body weight Oxygen saturation Oxygen saturation in Arterial blood by Pulse oximetry Heart rate Systolic And Diastolic Provider Name and Address Organization Details Last Updated DateTime 5 182.88 cm 26.1 kg/m2 21689.8 9 g 98 % 98 % 82 /min 132/80 mm[Hg] Laquita Amaya MA [facility] 5 15:44:09 Social History Question Answer Notes LastModified by Organizat ion Details LastModified Time Tobacco Smoking Status Current Some Day Smoker Laquita Amaya MA null, [facility] 10/13/2024 09:56:55 Do You Have An Advance [...] Date Of Your Most Recent Tobacco Screening? 12/08/2024 Information not available 12/08/2024 What Is Your Current Pack Years? 10-19packyears [...] Time OPV, trivalent 1 completed Not Available [facility] 12/08/2024 15:59:16 DTP 1 completed Not Available [facility] 12/08/2024 15:59:16 Hib, unspecified formulation 1 completed Not Available [facility] 12/08/2024 15:59:16 Hib, unspecified formulation 2 completed Not Available [facility] 12/08/2024 15:59:16 DTP 2 completed Not Available [facility] 12/08/2024 15:59:16 OPV, trivalent 2 completed Not Available [facility] 12/08/2024 15:59:16 Hib, unspecified formulation 2 completed Not Available [facility] 12/08/2024 15:59:16 DTP 2 completed Not Available [facility] 12/08/2024 15:59:16 Hib, unspecified formulation 3 completed Not Available [facility] 12/08/2024 15:59:16 MMR 3 completed Not Available [facility] 12/08/2024 15:59:16 DTP 3 completed Not Available [facility] 12/08/2024 15:59:16 OPV, trivalent 3 completed Not Available [facility] 12/08/2024 15:59:16 Tdap 1 completed Not Available [facility] 12/08/2024 15:59:16 COVID-19, mRNA, LNP-S, PF, 30 mcg/0.3 mL dose 1 completed Not Available [facility] 12/08/2024 15:59:16 COVID-19, mRNA, LNP-S, PF, 30 mcg/0.3 mL dose 1 completed Not Available [facility] 12/08/2024 15:59:16 Past Encounters Encounter ID Performer Location Encounter Start Date Encounter Closed Date Diagnosis/Indication Diagnosis SNOMED-CT Code Diagnosis ICD10 Code Diagnosis IMO Codes Diagnosis Note [id number] Rayshawn Lafleur MD [facility] [address] [place] [address] 04/22/2023 09:16:23 04/22/2023 10:25:23 Adult health examination 264452642 Z00.01 annual wellness/p t re-establi shing. Well contr olled type 1 diabetes mellitus 216028073 E10.9 pt is due for diabetic eye exam . [facility]. Insulin pump present 450 089889 Z96.41 great management of diabetes. Long-term drug therapy 639243185 Z79.899 routine cbc and cmp due Thyroid di sorder screening 154147716 Z13.29 screening thyroid labs ordered. Cholesterol screening 27 1446756 Z13.220 fasting lipids due Fatigue 15011726 R53.83 screening vitamins and testostero ne labs ordered. Dyspnea on exertion 6084 5006 R06.09 refer for exercise stress testing evaluation with underlying diabetes and dyspnea newer onset, with exertion Acute sinusitis 91547415 J01.90 Rx for zpack therapy for persistent sinus issues. [id number] Rayshawn Lafleur MD [facility] [employer] [address] [place] [address] 10/13/2024 09:45:51 10/13/2024 11:27:30 Overweight in adulthood with body mass index of 25 or more but less than 30 928954046 E66.3 Z68.26 8544989313 Adult [facility] th examination 570673538 Z00.00 9801731 annual wellness completed Lesion of nose 507661317 J34.89 725085 Refer to dermatolog y for general skin check on face and nasal macular discolorat ion Type 1 pili betes mellitus 43147381 E10.9 Stable following with endocrinol ogy A1c of 6.6%. Patient has a Dexcom as well as insulin pump with Humalog. [id number] Rayshawn Lafleur MD [facility] [employer] [address] [place] [address] 12/08/2024 14:52:16 12/08/2024 16:33:26 Overweight in adulthood with body mass index of 25 or more but less than 30 227851224 E66.3 Z68.26 1170763193 26.1 Syncope and collapse 309 329896 R55 00765 For syncope and collapse that may or may not have been related to blood sugar that was lower accompanie d with alcohol use and marijuana use. He normally keeps very good control of his glucose and it was not overly low as he had had food intake within the previous 30-60 minutes. He did not have any preceding alert that he was getting ready to pass out. He had no chest pain no heart palpitatio ns no diaphoresi s. He did not have any post syncope confusion. We will send for an ultrasound echo Doppler as well as a 30 day event monitor and refer for an MRI of the brain with and without contrast to evaluate for any structural space-occu pying abnormalit y that may have been responsibl e for syncope. Chest wall pain 00367338 6 R07.89 34587 Anterior chest wall pain after the front facing fall to the ground. We will send for a chest x-ray since he left the emergency room before being evaluated. Last year 2023 patient had an exercise stress test which showed some upsloping ST segment depression during the exercise which resolved within 30 seconds of recovery. He did follow-up and Cardiology told him that the stress findings were just indicative of the workload on the heartbeat not myocardial ischemia. His exercise capacity was excellent there was no further cardiac workup or investigat ion needed. They did recognize that he is at risk for coronary artery disease but the stress test findings were unremarkab le. Rib pain 243770965 R07.8 9 [id number] We will also send for rib x-rays on the left side to rule out any fracture from the fall since he does have current pain Gastroesop hageal reflux disease 502098736 K21.9 3142398264 Start omeprazole 40 mg daily for acid reflux that is daily. We have also discussed doing an EGD in the beginning of the year when he is in his new insurance plan. Type 1 pili betes mellitus 87882624 E10.9 Stable following with endocrinol ogy A1c of 6.6%. Patient has a Dexcom as well as insulin pump with Humalog. Long-term current use of insulin 098963420 Z79.4 4189787 labs are UTD with Endocrine. Health Concerns Section Related Observation LastModified by Organization Detai ls LastModified Time None Recorded Concern Status LastModified by Organization Details LastModified Time None Recorded Advance Directives Directive N: Payers Insurance Date Sequence Insurance Name Policy Number Policy Peacock Covered Member ID Peacock Member ID Guarantor Name 12/08/2024 1 [place] [id number] 1 Kojo Guaman [id number] Kojo Guaman 12/14/[address] [facility] [id number] Kojo Guaman [id number] Kojo Guaman Notes Date Note Type Note Provider Name [...] with rest. JENNIFER Bunch Attn: Accounting,[address] [place], [address], [facility] - [facility] 05/04/2023 16:33:12 5 text/html DiabetesReported by Patient6.6% on last a1c. dr. ramon graff is endo that follows. JENNIFER Bunch Attn: Accounting,[address], [place], [address], [facility] - [facility] 10/19/2024 23:22:10 5 text/html Pt states that on saturday he went to his friends and happy hour states that he about 5 drinks, states that he noticed his bs was getting low states that he started eating some sugary foods, states that he then stood up, walked into the living room and passed out ; states that he then went to the e/r but he wasn't seen due to excessive wait time.Did he noticed that he was cold after this has happened. First time this has happened before.States that he has felt better since, however he does get occasional heart palpations and chest discomfort states that his concern is acid reflux.no pressure in head/ no change in vision/ no numbness-tingling.Sandeep carvalho does report that he had been drinking some alcohol as well as using marijuana prior to this episode of syncope. Those things are not unusual him for him to partake in. He has never previously had any syncope related to that. He now has some chest wall pain especially on the left side over the ribs.Additionally he reports he is having a lot of acid reflux symptoms over the last months.Patient has an underlying history of type 1 diabetes that has been very well-controlled. JENNIFER Bunch Attn: Accounting,[address], [place], [address], [facility] - [facility] 12/13/2024 20:02:11
== END 2025-01-01 07:56 | disposition home or self-care (01) ==
LOC: ANHAUDASC 07:56
PROVIDERS: PCP Physician Assistant; Visit Provider Otolaryngology
DX: H93.19 Tinnitus, unspecified ear (principal)
CPT/HCPCS: 92557; 92567

== ENCOUNTER 2025-01-04 07:45 | Outpatient (CLI) | payer OTHER, SELFPAY ==
--- NOTE | ~2025-01-04 | MR_ITS ---
EXAMINATION: MR brain IAC wo/w con DATE: 01/04/2025 08:57 INDICATION: No onset bilateral tinnitus TECHNIQUE: Magnetic resonance imaging (MRI) of the brain and brainstem was performed without and with 18 mL Multihance intravenous contrast. Sequences included sagittal and axial T1-weighted FSE, axial diffusion-weighted FS EPI, axial T2*-weighted GRE, axial T2-weighted FLAIR Propeller, axial T2-weighted Propeller, small owinq-mr-lkkc coronal FIESTA, small nxeun-mc-cduo coronal T1- weighted FSE, and small wfrlc-mt-njgj axial T1-weighted SPGR. Postcontrast sequences included axial T1-weighted FSE, small jkijw-il-qnhz coronal T1- weighted FSE, and small kgwel-nz-mius axial T1-weighted SPGR. Apparent diffusion coefficient (ADC) maps were created. COMPARISON: None. FINDINGS: There are no areas of restricted diffusion to suggest acute infarction. No intracranial hemorrhage or abnormal intracranial mass lesion. There are no intraparenchymal signal abnormalities seen on the other pulse sequences. The ventricles are symmetric and normal in size. There are no abnormal extra-axial fluid collections. No abnormal fluid in the bilateral mastoid air cells are middle ear cavities. The 7th and 8th cranial nerve complexes are symmetric and normal in course and caliber. Bilateral cochlea and semicircular canals are unremarkable. No cerebellopontine angle masses. Posterior fossa is unremarkable. Flow voids are seen in the cerebral arteries on the T2-weighted sequences consistent with their expected patency. Mild mucosal thickening in the left maxillary and bilateral ethmoid sinuses. Mucous retention cyst in the right maxillary sinus. Visualized orbits and soft tissues are unremarkable. There are no areas of abnormal enhancement on the post contrast images. IMPRESSION: 1. Mild sinus disease. Otherwise unremarkable MRI of the brain and internal auditory canals. Reviewed, dictated and finalized at location A. [employer] IMPRESSION: 1. Mild sinus disease. Otherwise unremarkable MRI of the brain and internal aud itory canals.
== END 2025-01-04 07:46 | disposition home or self-care (01) ==
PROVIDERS: PCP Physician Assistant; Visit Provider Physician Assistant
DX: H93.13 Tinnitus, bilateral (principal)
CPT/HCPCS: 70553; A9577